=== PATIENT | male | born 1950 ===

== ENCOUNTER → 2020-12-30 11:17 | Outpatient (BNVA) | payer OTHER, SELFPAY | PROVIDERS: Visit Provider Nurse Practitioner Family | DX: G61.81 Chronic inflammatory demyelinating polyneuritis (principal); M47.816 Spondylosis without myelopathy or radiculopathy, lumbar region | CPT/HCPCS: 99202 ==

== ENCOUNTER → 2021-01-30 13:42 | Outpatient (BNVA) | payer OTHER, SELFPAY | PROVIDERS: Visit Provider Nurse Practitioner Family | DX: G61.81 Chronic inflammatory demyelinating polyneuritis (principal); M47.816 Spondylosis without myelopathy or radiculopathy, lumbar region; M54.16 Radiculopathy, lumbar region; R29.898 Other symptoms and signs involving the musculoskeletal system; Z98.890 Other specified postprocedural states | CPT/HCPCS: 99212 ==

== ENCOUNTER 2021-04-08 05:54 | Outpatient (REF) | payer OTHER, SELFPAY | END 2021-04-08 05:55 | disposition home or self-care (01) | LOC: HO.RADIR 05:54 | PROVIDERS: Visit Provider Internal Medicine | DX: Z13.89 Encounter for screening for other disorder (principal) ==

== ENCOUNTER → 2022-02-19 11:24 | Outpatient (BNVA) | payer OTHER, SELFPAY | PROVIDERS: Visit Provider Internal Medicine | DX: M54.16 Radiculopathy, lumbar region (principal); M47.816 Spondylosis without myelopathy or radiculopathy, lumbar region; G61.81 Chronic inflammatory demyelinating polyneuritis | CPT/HCPCS: 99212 ==

== ENCOUNTER 2022-03-17 04:56 | Outpatient (REF) | payer OTHER, SELFPAY ==
--- NOTE | ~2022-03-17 | FL_ITS ---
EXAMINATION: XR FLUOROSCOPY WITH IMAGES CLINICAL INFORMATION: Radiculopathy lumbar region COMPARISON: None. TECHNIQUE: Fluoroscopy Supervised By: Megan. Fluoroscopy Time: 0.8. Cumulative Dose: 39.8 mGy . DAP: 3.93 Gycm2. Images: 7. FINDINGS: There are 7 digital images obtained in the OR with needles positioned adjacent to bilateral L4 pedicles and contrast opacifying the epidural space. No gross bony abnormality seen. There is cement augmentation at the L2 vertebra from previous intervention. FL/FL guidance in treatment room IMPRESSION: Fluoroscopy guidance was provided to the referrer for pain management.
== END 2022-03-17 04:57 | disposition home or self-care (01) ==
LOC: CF 04:56
PROVIDERS: Visit Provider Internal Medicine
DX: M54.16 Radiculopathy, lumbar region (principal)
CPT/HCPCS: 64483; J1100

== ENCOUNTER 2022-03-23 14:38 | Emergency (ER) | payer OTHER, SELFPAY ==
--- NOTE | ~2022-03-23 | CT_ITS ---
EXAMINATION: CT HEAD WITHOUT CONTRAST CT CERVICAL SPINE WITHOUT CONTRAST CLINICAL INFORMATION: Fall. Head strike. COMPARISON: CT head 11/03/2011 TECHNIQUE: Imaging was performed from the skull base to vertex without intravenous administration of contrast. In addition, helical noncontrast CT imaging was acquired through the cervical spine and source images were reviewed along with axial reconstructions and sagittal and coronal MPRs. [This CT examination was performed using dose optimization techniques as appropriate, variously including the following: *Automated exposure control *Adjustment of mA and/or kV according to patient size (this includes techniques or standardized protocols for targeted exams where dose is matched to indication/reason for exam; i.e. extremities or head) *Use of iterative reconstruction technique] DLP: 1315 mGy-cm FINDINGS: HEAD: No intracranial mass, hemorrhage, or midline shift is visualized. There is generalized global volume loss. There is moderate prominence of the ventricles and the sulci . There is mild hypodensity of the periventricular white matter due to chronic small vessel ischemic disease. There are vascular calcifications of the internal carotid arteries bilaterally. . No extra-axial collections are identified. The paranasal sinuses and mastoid air cells are well aerated. CERVICAL SPINE: There is no evidence of acute cervical spine fracture. Vertebral bodies remain normal in height. Cervical vertebrae have normal alignment. Disc height narrowing and vertebral endplate spurs C5-C6 and C6-C7. Mild disc height narrowing at C4-C5. Multilevel degenerative change of facet joints most significant at the right C5-C6 facet joint. No pre- or paravertebral soft tissue abnormality is identified. Limited assessment of the lung apices is unremarkable. CT/CT cervical spine wo IV con IMPRESSION: 1. No acute intracranial pathology. 2. No CT evidence of acute cervical spine fracture or traumatic subluxation.
--- NOTE | 2022-03-23 14:50 | ED.GENADULT ---
HPI - General Adult General Chief complaint: Fall Stated complaint: FALL,HIT HEAD,-LOC,FROM [facility] PER EMS Time Seen by Provider: 03/23/22 14:50 Source: patient and EMS Mode of arrival: EMS Limitations: no limitations History of Present Illness HPI narrative: Franklin is a 71 year old male brought in by ambulance after a fall/head injury while shopping. He reports chronic extremity weakness as the cause and denies any dizziness/lightheadedness prior to event. He endorses persistent posterior and anterior head pain. He denies thinner use. Alert, oriented x 3, currently in cervical spine precautions. Onset (ago): minute(s) Location: head Severity: mild Severity scale (1-10): 1 Relieving factors: none Exacerbating factors: none Associated symptoms: denies other symptoms Treatments prior to arrival: none Related Data Home Medications Medication Instructions Recorded Confirmed calcium carbonate 600 mg calcium 600 mg PO DAILY 12/30/20 02/19/22 (1,500 mg) tablet (Calcium) ferrous sulfate 325 mg (65 mg 325 mg PO DAILY 12/30/20 02/19/22 iron) tablet,delayed release mecobalamin (vitamin B12) 5,000 2,500 mcg PO DAILY 12/30/20 02/19/22 mcg disintegrating tablet omeprazole 20 mg capsule,delayed 20 mg PO DAILY 12/30/20 02/19/22 release pregabalin 150 mg capsule 150 mg PO BID 12/30/20 02/19/22 simvastatin 40 mg tablet 60 mg PO BEDTIME 12/30/20 02/19/22 Previous Rx's Medication Instructions Recorded diazepam 5 mg tablet 5 mg PO BEDTIME PRN sleep #1 tab 02/19/22 tizanidine 2 mg tablet 2 mg PO BEDTIME PRN muscle 02/19/22 spasticity #60 tabs Allergies Allergy/AdvReac Type Severity Reaction Status Date / Time tramadol [TRAMADOL] Allergy Intermediate itching Verified 03/23/22 15:01 aspirin [ASPIRIN] AdvReac Intermediate UPSET Verified 03/23/22 15:01 STOMACH Review of Systems Constitutional: Constitutional: Reports no additional constitutional complaints, Denies chills, Denies fever(s), Reports headache(s) and Denies night sweats Eyes: Eyes: Reports no additional eye complaints, Denies blurry vision, Denies change in vision, Denies diplopia, Denies eye discharge, Denies loss of vision and Denies eye pain ENT: Denies dizziness and Reports headache(s) Cardiovascular: Cardiovascular: Reports no additional cardiovascular complaints, Denies chest pain, Denies lightheadedness, Denies Loss of Consciousness and Denies dyspnea Respiratory: Respiratory: Reports no additional respiratory complaints and Denies dyspnea Gastrointestinal: Gastrointestinal: Reports no additional gastrointestinal complaints, Denies abdominal pain, Denies melena, Denies hematochezia, Denies change in bowel habits and Denies change in stool character Genitourinary: Genitourinary: Reports no additional male genitourinary complaints, Denies hematuria, Denies oliguria, Denies difficulty urinating, Denies dysuria, Denies urinary frequency, Denies urinary hesitancy, Denies urinary incontinence and Denies urinary urgency Musculoskeletal: Musculoskeletal: Reports no additional musculoskeletal complaints, Denies numbness and Denies tingling Neurologic: Denies dizziness, Reports headache(s), Denies loss of vision, Denies numbness and Denies tingling Psychiatric: Psychiatric: Reports no additional psychiatric complaints Endocrine: Endocrine: Reports no additional endocrine complaints Hematologic/Lymphatic: Hematologic/Lymphatic: Reports no additional hematologic/lymphatic complaints Allergic/Immunologic: Allergic/Immunologic: Reports no additional allergic/immunologic complaints PMFSH Past Medical History Attestation statement: The following information was validated with the patient. Source: old records reviewed and nursing notes reviewed Surgical History History of kyphoplasty Social History Social History Alcohol intake: never Smoked in Last 30 Days: No Use of substances other than those prescribed or required for medical reasons: No Advance Directives: No Advance Directives Information Provided: No Physical Exam ED Vital Signs: Vital Signs - 24 hr 03/23/22 15:01 03/23/22 15:02 03/23/22 15:08 Pulse Rate 78 80 80 Respiratory Rate 18 16 16 Blood Pressure 140/89 H Pulse Oximetry 96 97 Oxygen Delivery Method Room Air BMI result Body Mass Index 36.9 Const General: cooperative, no acute distress, alert and awake Nutritional Appearance: well nourished Orientation/consciousness: patient oriented x3 Limitations: no limitations HENMT Head: Yes normal to inspection and Yes atraumatic Ears: hearing grossly normal bilaterally and external ears normal General nose exam: Normal external nose present, no nasal discharge noted and no epistaxis Face and sinus: Yes normal facial exam, No abrasion and No laceration Mouth: Normal oral and palatal mucosa present, no drooling and no muffled voice Eyes General: appearance normal, both eyes and all related structures Periorbital: periorbital findings normal Eyelids: Yes eyelids normal Conjunctivae: conjunctivae normal Pupils: Equal, round and reactive pupils present EOM: EOMs intact bilaterally Direct Ophthalmoscopy: normal light reflex Neck Neck: Yes normal visual inspection, No full ROM, Yes no lymphadenopathy and Yes trachea midline Chest Chest palpation & inspection: normal inspection of the chest Resp Effort & Inspection: normal respiratory effort and able to speak in complete sentences Auscultation: clear to auscultation bilaterally Cardio Rate: regular rate Rhythm: regular rhythm GI Inspection: Yes normal to inspection Palpation (GI): Soft to palpation, not firm, nontender and no guarding Auscultation: normal bowel sounds Neuro General: patient oriented x3 and moves all extremities Cranial nerves: Yes Equal, round and reactive pupils present Cognition (Neuro): normal cognition Motor exam (neuro): 5/5 motor strength present throughout Sensory Exam: Normal double simultaneous stimulation for sensation Coordination: [id number] test normal Pupils: Normal pupillary reactivity/response: bilateral Extrem General: Yes normal to inspection, Yes full ROM and Yes capillary refill normal Psych Appearance: grossly normal Mental Status: mental status grossly normal Affect: normal affect Attitude: cooperative Thought process: Normal thought process present Thought content: Normal thought content present Insight: Good insight present (Psych) Medical Decision Making Medical Decision Making MDM Narrative: Patient is a 71 year old assigned male at with a history of chronic bilateral lower leg weakness presenting to the emergency department today after a fall. Patient's physical exam was unremarkable. Patient's head and C-Spine CTs showed no acute process. I explained my physical exam findings as well as all test results to the patient. I answered all questions asked by the patient. I stressed the importance of the patient taking his medication as prescribed. I stressed the importance of the patient following up with his primary care provider. I stressed the importance of the patient returning to the emergency department immediately if his symptoms were to worsen or if he were to develop any dizziness, shortness of breath, difficulty breathing, chest pain, blurry vision, loss of vision, nausea, vomiting, abdominal pain, fever, chills, back pain, or any other complaints. Patient verbalized agreement and understanding with this treatment plan and discharge. Differential Diagnosis Differential Diagnoses: The differential diagnosis associated with the presentation includes fall, headache Radiology Impression Radiologist Impression: My interpretation is in agreement with the radiologist's impression of these imaging studies. EXAMINATION: CT HEAD WITHOUT CONTRAST CT CERVICAL SPINE WITHOUT CONTRAST CLINICAL INFORMATION: Fall. Head strike.? COMPARISON: CT head 11/03/2011 TECHNIQUE: Imaging was performed from the skull base to vertex without intravenous administration of contrast. In addition, helical noncontrast CT imaging was acquired through the cervical spine and source images were reviewed along with axial reconstructions and sagittal and coronal MPRs. [This CT examination was performed using dose optimization techniques as appropriate, variously including the following: *Automated exposure control *Adjustment of mA and/or kV according to patient size (this includes techniques or standardized protocols for targeted exams where dose is matched to indication/reason for exam; i.e. extremities or head) *Use of iterative reconstruction technique] DLP: 1315 mGy-cm FINDINGS: HEAD: No intracranial mass, hemorrhage, or midline shift is visualized. There is generalized global volume loss. There is moderate prominence of the ventricles and the sulci . There is mild hypodensity of the periventricular white matter due to chronic small vessel ischemic disease. There are vascular calcifications of the internal carotid arteries bilaterally. . No extra-axial collections are identified. The paranasal sinuses and mastoid air cells are well aerated. CERVICAL SPINE: There is no evidence of acute cervical spine fracture. Vertebral bodies remain normal in height. Cervical vertebrae have normal alignment. Disc height narrowing and vertebral endplate spurs C5-C6 and C6-C7. Mild disc height narrowing at C4-C5. Multilevel degenerative change of facet joints most significant at the right C5-C6 facet joint. No pre- or paravertebral soft tissue abnormality is identified. Limited assessment of the lung apices is unremarkable. CT/CT head/brain wo IV con IMPRESSION: 1.? No acute intracranial pathology. 2.? No CT evidence of acute cervical spine fracture or traumatic subluxation. ? Dictated By: Vikash Mello MD Signed By: Electronically signed by Vikash Mello MD 03/23/22 [id number] Independent Historian Clinical information obtained from an independent historian. History obtained from or confirmed by: EMS Discharge Plan Discharge Clinical Impression: Fall Patient Disposition: Home, Self-Care Instructions: Fall Prevention (ED) Additional Instructions: Follow up with your primary care provider. Return to the emergency department immediately if your symptoms worsen or if you develop any dizziness, shortness of breath, difficulty breathing, chest pain, blurry vision, loss of vision, nausea, vomiting, abdominal pain, fever, chills, back pain, or any other complaints. Roel un seguimiento con becerra proveedor de atenci?n primaria. Regrese al departamento de emergencias de inmediato si mary s?ntomas empeoran o si presenta mareos, falta de aire, dificultad para respirar, dolor de pecho, visi?n borrosa, p?rdida de la visi?n, n?useas, v?mitos, dolor abdominal, fiebre, escalofr?os, dolor de espalda o cualquier otras quejas. Prescriptions: No Action pregabalin 150 mg capsule 150 mg PO BID omeprazole 20 mg capsule,delayed release(DR/EC) 20 mg PO DAILY simvastatin 40 mg tablet 60 mg PO BEDTIME calcium carbonate [Calcium 600] 600 mg calcium (1,500 mg) tablet 600 mg PO DAILY ferrous sulfate 325 mg (65 mg iron) tablet,delayed release (DR/EC) 325 mg PO DAILY mecobalamin (vitamin B12) 5,000 mcg tablet,disintegrating 2,500 mcg PO DAILY tizanidine 2 mg tablet 2 mg PO BEDTIME PRN (Reason: muscle spasticity) Qty: 60 6RF Rx Instructions: Take 1-2 tabs at night time as needed diazepam 5 mg tablet 5 mg PO BEDTIME PRN (Reason: sleep) Qty: 1 0RF Rx Instructions: Take 1 hour before procedure Referrals: Marina Galeano MD [Primary Care Provider] - Print Language: Citizen Of [place]
[2022-03-23 15:01] VITALS: BP 140/89; PULSE 78; RESP 18; O2SAT 96
[2022-03-23 15:02] VITALS: BP 144/82; PULSE 80; RESP 16; O2SAT 96; O2SAT 97; BMI 36.9
[2022-03-23 15:08] VITALS: PULSE 80; RESP 16
== END 2022-03-23 17:51 | disposition home or self-care (01) ==
PROVIDERS: Emergency Provider Emergency Medicine; PCP Internal Medicine
DX: S09.90XA Unspecified injury of head, initial encounter (principal); R51.9 Headache, unspecified; M54.2 Cervicalgia; M79.605 Pain in left leg; M79.604 Pain in right leg; W01.0XXA Fall on same level from slipping, tripping and stumbling without subsequent striking against object, initial encounter; Y93.9 Activity, unspecified; Y92.512 Supermarket, store or market as the place of occurrence of the external cause; Y99.9 Unspecified external cause status; Z79.899 Other long term (current) drug therapy
CPT/HCPCS: 70450; 72125; 99284

== ENCOUNTER → 2022-04-16 09:44 | Outpatient (BNVA) | payer OTHER, SELFPAY | PROVIDERS: PCP Internal Medicine; Visit Provider Internal Medicine | DX: M47.816 Spondylosis without myelopathy or radiculopathy, lumbar region (principal) | CPT/HCPCS: 99212 ==

== ENCOUNTER 2022-07-05 19:58 | Emergency (ER) | payer OTHER, SELFPAY ==
--- NOTE | ~2022-07-05 | XR_ITS ---
EXAMINATION: XR HUMERUS, RIGHT CLINICAL INFORMATION: Fall. COMPARISON: None available. TECHNIQUE: AP and lateral views of the right humerus. FINDINGS: There is a nondisplaced right greater tuberosity fracture. No additional fracture seen. There is no dislocation. Partially visualized AC joint is unremarkable. XR/XR humerus RT IMPRESSION: Nondisplaced right greater tuberosity fracture. No additional fracture seen. There is no dislocation.
--- NOTE | ~2022-07-05 | CT_ITS ---
EXAMINATION: CT brain and CT cervical spine without contrast. CLINICAL INDICATIONS: Trauma. COMPARISON: CT brain and CT cervical spine 03/23/2022. TECHNIQUE: 5 mm thin axial and reformatted 2 mm thin sagittal and coronal images of brain were obtained. Subsequently axial 3 mm thin and reformatted 2 mm thin sagittal and coronal images of cervical spine were obtained. DLP 1319 mCi/CM. This CT examination was performed using dose optimization technique as appropriate, variously including the following: Automated exposure control Adjustment of MA and/or KV according to patient size(this includes techniques or standardized protocols for targeted exams where dose is matched to indication/reason for exam; extremities or head. Use of iterative reconstruction techniques. FINDINGS: There is no acute intra-axial, extra-axial bleed, masses or midline shift. There is no acute infarction evolution. There is no edema. The hopkins to white matter difference is maintained normal. The lateral ventricles are symmetrical in size and configuration but enlarged with mild prominence of cortical sulci. Bone windows reveal no calvarial abnormality. No scalp soft tissue abnormality seen.. Bilateral paranasal sinuses and mastoid air cells are well-aerated. Cervical spine: On sagittal reconstructed images there is mild straightening of cervical lordosis. The vertebral heights, alignment and disc heights are normal. No visible acute fracture, dislocation or subluxation seen. There is mild ventral spondylosis C4-C5, C5-C6 and C6-C7 disc levels. There is mild right C4-C5 neural foraminal narrowing. There is no visible acute fracture, dislocation or subluxation seen. There is moderate right C4-C5 facet joint arthropathy and hypertrophy. CT/CT cervical spine wo IV con IMPRESSION: No acute intracranial process seen. Mild straightening of cervical lordosis likely spasm. No visible acute fracture or dislocation seen in cervical spine.
[2022-07-05 20:09] VITALS: BP 170/82; PULSE 78; RESP 22; TEMP 36.4; O2SAT 99; BMI 40.3
--- NOTE | 2022-07-05 20:42 | ED.FALL ---
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 No chest pain or palpitation Related Data Home Medications Medication Instructions Recorded Confirmed calcium carbonate 600 mg calcium 600 mg PO DAILY 12/30/20 04/16/22 (1,500 mg) tablet (Calcium) ferrous sulfate 325 mg (65 mg 325 mg PO DAILY 12/30/20 04/16/22 iron) tablet,delayed release mecobalamin (vitamin B12) 5,000 2,500 mcg PO DAILY 12/30/20 04/16/22 mcg disintegrating tablet omeprazole 20 mg capsule,delayed 20 mg PO DAILY 12/30/20 04/16/22 release pregabalin 150 mg capsule 150 mg PO BID 12/30/20 04/16/22 simvastatin 40 mg tablet 60 mg PO BEDTIME 12/30/20 04/16/22 Previous Rx's Medication Instructions Recorded diazepam 5 mg tablet 5 mg PO BEDTIME PRN sleep #1 tab 02/19/22 tizanidine 2 mg tablet 2 mg PO BEDTIME PRN muscle 02/19/22 spasticity #60 tabs oxycodone-acetaminophen 5 mg-325 1 tab PO Q6H PRN pain #20 tabs 07/05/22 mg tablet (Percocet) Allergies Allergy/AdvReac Type Severity Reaction Status Date / Time tramadol [TRAMADOL] Allergy Intermediate itching Verified 04/16/22 09:52 aspirin [ASPIRIN] AdvReac Intermediate UPSET Verified 04/16/22 09:52 STOMACH Review of Systems Review of Systems: Yes all other systems are reviewed and are negative PMFSH Past Medical History Surgical History History of kyphoplasty Social History Social History Alcohol intake: never Smoked in Last 30 Days: No Use of substances other than those prescribed or required for medical reasons: No Any prior treatment program specific to substance use: No Advance Directives: No Advance Directives Information Provided: Yes Physical Exam Vital Signs: Vital Signs: Last Vital Signs Temp 98.6 F 07/05/22 21:50 Pulse 82 07/05/22 22:00 Resp 15 07/05/22 22:00 BP 132/70 07/05/22 22:00 Pulse Ox 97 07/05/22 22:00 O2 Del Method Room Air 07/05/22 22:00 BMI result Body Mass Index 40.3 Appearance: Alert. Oriented X3. No acute distress. Eyes: PERRLA, No Nystagmus HEENT: Pharynx normal. Oral Mucosa moist, abrasion right forehead Neck: Normal inspection. Neck supple. CVS: Normal heart rate and rhythm. Pulses normal. Respiratory: No respiratory distress. Equal air entry bilateral, no wheezing/rales/rhonchi Abdomen: Soft and nontender. Bowel sounds are present, no mass palpable, no CVA tenderness Skin: Skin warm and dry. Normal skin color. Normal skin turgor. Extremities: No lower extremity edema. No calf tenderness tenderness right upper end of humerus no deformity Neuro: Oriented X 3. Minimal residual movements of lower extremity, .No cerebellar signs , cranial nerves II-XII intact Medications Administered Discontinued Medications Generic Name Dose Route Start Last Admin Trade Name Freq PRN Reason Stop Dose Admin Oxycodone HCl 10 mg 07/05/22 21:06 07/05/22 21:33 Oxycodone Hcl Immed Release 5 Mg Tablet PO 07/05/22 21:07 10 mg ONCE ONE Administration Medical Decision Making Medical Decision Making [facility] Narrative: Patient status post mechanical fall head CT C-spine negative x-ray of the right humerus showed right greater tuberosity fracture. Patient was given a sling advised to follow with orthopedic Discharge Plan Discharge Clinical Impression: Closed fracture of lateral condyle of right humerus Patient Disposition: Home, Self-Care Instructions: Arm Fracture in Adults (ED) Additional Instructions: Wear the sling for support Follow-up with orthopedic Pain medication as prescribed Prescriptions: New oxycodone-acetaminophen [Percocet] 5-325 mg tablet 1 tab PO Q6H PRN (Reason: pain) Qty: 20 0RF Rx Instructions: Partial Fill upon patient request. No Action pregabalin 150 mg capsule 150 mg PO BID omeprazole 20 mg capsule,delayed release(DR/EC) 20 mg PO DAILY simvastatin 40 mg tablet 60 mg PO BEDTIME calcium carbonate [Calcium 600] 600 mg calcium (1,500 mg) tablet 600 mg PO DAILY ferrous sulfate 325 mg (65 mg iron) tablet,delayed release (DR/EC) 325 mg PO DAILY mecobalamin (vitamin B12) 5,000 mcg tablet,disintegrating 2,500 mcg PO DAILY tizanidine 2 mg tablet 2 mg PO BEDTIME PRN (Reason: muscle spasticity) Qty: 60 6RF Rx Instructions: Take 1-2 tabs at night time as needed diazepam 5 mg tablet 5 mg PO BEDTIME PRN (Reason: sleep) Qty: 1 0RF Rx Instructions: Take 1 hour before procedure Referrals: Eloy Nava MD [Physician] - 2 weeks
[2022-07-05] MEDS: oxyCODONE HCl Immed Release 5 MG TABLET 10 MG PO (21:33)
[2022-07-05 21:50] VITALS: BP 138/78; PULSE 89; RESP 18; TEMP 37
[2022-07-05 22:00] VITALS: BP 132/70; PULSE 82; RESP 15; O2SAT 97
--- NOTE | 2022-07-05 23:01 | MHC.EDTECH ---
osiris issued to pt.
[2022-07-05] MEDS: Morphine Sulfate 4 MG/ML CARTRIDGE IVPUSH (23:33)
[2022-07-05] MEDS: ondansetron HCL 4 MG/2 ML VIAL IVPUSH (23:33)
== END 2022-07-05 23:35 | disposition home or self-care (01) ==
PROVIDERS: Emergency Provider Internal Medicine
DX: S42.454A Nondisplaced fracture of lateral condyle of right humerus, initial encounter for closed fracture (principal); W17.89XA Other fall from one level to another, initial encounter; Y93.01 Activity, walking, marching and hiking; Y92.019 Unspecified place in single-family (private) house as the place of occurrence of the external cause; Y99.9 Unspecified external cause status
CPT/HCPCS: 70450; 72125; 73060; 96374; 96375; 99284; J2270; J2405

== ENCOUNTER 2022-07-21 12:27 | Outpatient (REF) | payer OTHER, SELFPAY ==
--- NOTE | ~2022-07-21 | XR_ITS ---
EXAMINATION: XR ELBOW, RIGHT CLINICAL INFORMATION: Pain in right elbow COMPARISON: None available. TECHNIQUE: AP, lateral, and oblique views of the right elbow. FINDINGS: The bones and soft tissues are normal. No fracture or joint effusion. Alignment is anatomic. There is mild narrowing of the joint space between the coracoid process and the distal humerus. XR/XR elbow RT min 3V IMPRESSION: Mild narrowing of the joint space between the coracoid process and the distal humerus.
--- NOTE | ~2022-07-21 | XR_ITS ---
EXAMINATION: XR SHOULDER, RIGHT CLINICAL INFORMATION: Pain in right shoulder COMPARISON: Right humerus 07/05/2022 from TECHNIQUE: AP view in internal/external rotation of the right shoulder. FINDINGS: There is partial healing of the nondisplaced right greater tuberosity fracture, most notable along the inferior aspect. There is superior subluxation of the humeral head with respect to the glenoid consistent with chronic rotator cuff tear. There is essentially obliteration of the subacromial space consistent with impingement. XR/XR shoulder RT min 2V IMPRESSION: 1. Partial healing of the nondisplaced right greater tuberosity fracture. 2. Chronic rotator cuff tear.
== END 2022-07-21 12:28 | disposition home or self-care (01) ==
LOC: HO.HOSX 12:27
PROVIDERS: Visit Provider Physician Assistant
DX: S42.251A Displaced fracture of greater tuberosity of right humerus, initial encounter for closed fracture (principal); M25.511 Pain in right shoulder
CPT/HCPCS: 73030; 73080; 99202

== ENCOUNTER 2022-09-01 11:27 | Outpatient (REF) | payer OTHER, SELFPAY ==
--- NOTE | ~2022-09-01 | XR_ITS ---
EXAMINATION: XR SHOULDER, RIGHT CLINICAL INFORMATION: Pain in right shoulder. COMPARISON: 07/21/2022. TECHNIQUE: AP external rotation, Grashey, scapular Y, and axillary views of the right shoulder. FINDINGS: Redemonstration of partial healing of the nondisplaced right greater tuberosity fracture. Redemonstration of superior subluxation of the humeral head with respect to the glenoid, again compatible with history of chronic rotator cuff tear. Narrowing of the subacromial space characteristic of impingement. XR/XR shoulder RT min 2V IMPRESSION: Redemonstration of partial healing of the nondisplaced right greater tuberosity fracture. Redemonstration of superior subluxation of the humeral head with respect to the glenoid again, compatible with history of chronic rotator cuff tear.
== END 2022-09-01 11:28 | disposition home or self-care (01) ==
LOC: HO.HOSX 11:27
PROVIDERS: Visit Provider Physician Assistant
DX: S42.251D Displaced fracture of greater tuberosity of right humerus, subsequent encounter for fracture with routine healing (principal); X58.XXXD Exposure to other specified factors, subsequent encounter
CPT/HCPCS: 73030; 99212

== ENCOUNTER 2022-09-01 13:01 | Outpatient (AMB) | payer OTHER, SELFPAY ==
--- NOTE | 2022-09-01 13:02 | A.OFFVIS_ITS ---
Intake Intake Visit Reasons: OV- Rt Humeral greater tuberosity FX Intake Note: Franklin is a 72 year old left hand dominant male who presents today for an evaluation of right humeral greater tuberosity fx, DOI 07/05/22. Patient reports his pain comes with movement of his arm. He continues to work with PT. Allergies tramadol [TRAMADOL] Allergy (Intermediate, Verified 09/01/22 13:12) itching aspirin [ASPIRIN] Adverse Reaction (Intermediate, Verified 09/01/22 13:12) UPSET STOMACH HPI OV- Rt Humeral greater tuberosity FX HPI Details 72-year-old male who returns to the office today for a follow-up of right humeral greater tuberosity fracture, 07/05/22. He continues to have pain in his arm with movement and is unable to perform daily activities with his right arm. He also c/o cracking in his arm with ROM. He is working with his physical therapy as instructed. [facility], [facility] Medical History (Updated 07/21/22 @ 15:28 by Jeffrey Bob PA-C) Asthma Surgical History (Updated 07/21/22 @ 14:55 by CARRIE Porter) History of hernia repair History of kyphoplasty Social History (Updated 07/21/22 @ 14:58 by CARRIE Porter) Alcohol intake: never Patient Tobacco Use Status: Never used Tobacco Current occupational status: disabled Current occupation: left hand dominant Review of Systems Const All systems reviewed & are unremarkable except as noted in HPI and below Physical Exam Const General: cooperative and no acute distress Orientation/consciousness: patient oriented x3 Resp Effort & Inspection: normal respiratory effort and able to speak in complete sentences Cardio Peripheral pulses: Peripheral pulses 2+ throughout Neuro General: patient oriented x3 Extrem Other: Right shoulder: Normal to inspection. He does have tenderness over the greater tuberosity. He can FF to 95 deg. NVI throughout. Results Reviewed Results Reviewed: X-rays of the right shoulder obtained in the office today show a non-displaced greater tuberosity fracture. Assessment & Plan Assessment & Plan (1) Greater tuberosity of humerus fracture: Code(s): S42.253A - Displaced fracture of greater tuberosity of unspecified humerus, initial encounter for closed fracture Plan He will progress with physical therapy to begin gentle RTC strengthening. He will also continue working with ROM and periscapular strengthening. I would like to see him back in 6 weeks with new x-rays, sooner if needed. Orders: Orders XR shoulder RT min 2V Today M25.511 - Pain in right shoulder Patient Instructions: Scribed for Jeffrey Bob PA-C, by Paddy Suarez biomedical equipment support specialist, on 09/01/2022 at 1:00 PM EST. I, Jeffrey Bob PA-C, have personally reviewed and agree with the information entered by the scribe. Coding Level of Care Code Global (19987) Diagnoses Greater tuberosity of humerus fracture S42.253A
== END 2022-09-01 13:42 | disposition home or self-care (01) ==
PROVIDERS: Visit Provider Physician Assistant
DX: S42.253A Displaced fracture of greater tuberosity of unspecified humerus, initial encounter for closed fracture (principal)
CPT/HCPCS: 99213

== ENCOUNTER 2022-10-13 09:03 | Outpatient (REF) | payer OTHER, SELFPAY ==
--- NOTE | ~2022-10-13 | XR_ITS ---
EXAMINATION: XR SHOULDER, RIGHT CLINICAL INFORMATION: Pain COMPARISON: Right shoulder radiograph from 08/30/2022 TECHNIQUE: Two views of the right shoulder. FINDINGS: Previously identified nondisplaced right greater tuberosity fracture is less conspicuous on current examination. Degenerative changes of the glenohumeral and acromioclavicular joint. Narrowing of the acromioclavicular interval suggesting rotator cuff pathology. Joint spaces and alignment are otherwise maintained. Soft tissues are unremarkable. Utilized portions of the right chest are unremarkable. XR/XR shoulder RT min 2V IMPRESSION: 1. Previously identified nondisplaced right greater tuberosity fracture is less conspicuous on current examination. 2. Degenerative changes of the glenohumeral and acromioclavicular joint. 3. Narrowing of the acromioclavicular interval suggesting rotator cuff pathology.
== END 2022-10-13 09:04 | disposition home or self-care (01) ==
LOC: HO.HOSX 09:03
PROVIDERS: Visit Provider Physician Assistant
DX: S42.251D Displaced fracture of greater tuberosity of right humerus, subsequent encounter for fracture with routine healing (principal)
CPT/HCPCS: 73030

== ENCOUNTER 2022-10-13 13:13 | Outpatient (AMB) | payer OTHER, SELFPAY ==
--- NOTE | 2022-10-13 13:26 | MHC.OFFVIS ---
Intake Vital Signs 10/13/22 13:27 Height 5 ft 6 in Weight 250 lb BMI 40.3 Intake Visit Reasons: ov- Right greater tuberosity fx w xrays Intake Note: Franklin is a 72 year old left hand dominant male who presents today for an evaluation of right humeral greater tuberosity fx, DOI 07/05/22.?Xrays updated in office. Patient reports he is doing well, his pain will come and go. He has completed PT. Allergies tramadol [TRAMADOL] Allergy (Intermediate, Verified 10/13/22 13:27) itching aspirin [ASPIRIN] Adverse Reaction (Intermediate, Verified 10/13/22 13:27) UPSET STOMACH HPI ov- Right greater tuberosity fx w xrays HPI Details 72-year-old left hand dominant male who returns to the office today for a follow-up of right humeral greater tuberosity fracture, 07/05/22. He continues to have intermittent pain in his shoulder but is doing well overall. He is completed with his physical therapy sessions. [facility] Medical History (Updated 07/21/22 @ 15:28 by Jeffrey Bob PA-C) Asthma Surgical History History of hernia repair History of kyphoplasty Social History Alcohol intake: never Patient Tobacco Use Status: Never used Tobacco Current occupational status: disabled Current occupation: left hand dominant Review of Systems Const All systems reviewed & are unremarkable except as noted in HPI and below Physical Exam Vital Signs: BMI result Body Mass Index 40.3 Const General: cooperative and no acute distress Orientation/consciousness: patient oriented x3 Resp Effort & Inspection: normal respiratory effort and able to speak in complete sentences Cardio Peripheral pulses: Peripheral pulses 2+ throughout Neuro General: patient oriented x3 Extrem Other: Right shoulder: Normal to inspection. He does not have pain or tenderness over the greater tuberosity. He has full ROM in his shoulder. 5/5 RTC strength. He can FF to 95 deg. NVI throughout. Results Reviewed Results Reviewed: X-rays of the right shoulder obtained in the office today show a non-displaced greater tuberosity fracture. Assessment & Plan Assessment & Plan (1) Greater tuberosity of humerus fracture: Code(s): S42.253A - Displaced fracture of greater tuberosity of unspecified humerus, initial encounter for closed fracture Plan He will continue with activity as tolerated including working on his home exercises program. If symptoms persist or worsens, patient will contact the office, otherwise follow-up as needed. Orders: Orders XR shoulder RT min 2V Today M25.511 - Pain in right shoulder Patient Instructions: Scribed for Jeffrey Bob PA-C, by Paddy Suarez medical records auditor, on 10/13/2022 at 1:30 PM EST. I, Jeffrey Bob PA-C, have personally reviewed and agree with the information entered by the scribe. Coding Level of Care Code Global (47941) Diagnoses Greater tuberosity of humerus fracture S42.253A
[2022-10-13 13:27] VITALS: BMI 40.3
== END 2022-10-13 14:24 | disposition home or self-care (01) ==
PROVIDERS: Visit Provider Physician Assistant
DX: S42.253A Displaced fracture of greater tuberosity of unspecified humerus, initial encounter for closed fracture (principal)
CPT/HCPCS: 99213

== ENCOUNTER 2022-12-21 01:55 | Emergency (ER) | payer OTHER, SELFPAY ==
--- NOTE | ~2022-12-21 | CT_ITS ---
CT HEAD WITHOUT IV CONTRAST CT CERVICAL SPINE WITHOUT IV CONTRAST CT MAXILLOFACIAL WITHOUT IV CONTRAST INDICATION: Head injury. Rule out fracture. COMPARISON: Head and cervical spine CT 07/05/2022. TECHNIQUE: Multidetector CT acquisitions of the head, maxillofacial region, and cervical spine were obtained without IV contrast. Multiplanar reformats were acquired and utilized for image interpretation. This CT examination was performed using dose optimization techniques as appropriate, variously including the following: *Automated exposure control *Adjustment of mA and/or kV according to patient size (this includes techniques or standardized protocols for targeted exams where dose is matched to indication/reason for exam; i.e. extremities or head) *Use of iterative reconstruction technique FINDINGS: HEAD: There is no intracranial hemorrhage, hydrocephalus, extra-axial surface collection, midline shift, or other herniation pattern. Juarez to white matter differentiation is diffusely maintained without evidence of an evolved acute territorial infarct. The basilar cisterns are preserved. Anterior left frontal scalp swelling. No acute osseous abnormality. There is a retention cyst within the left maxillary sinus and there is mild mucosal thickening within the maxillary sinuses and ethmoid air cells bilaterally. MAXILLOFACIAL: The mandible, maxilla, pterygoid plates, nasal bones, zygomatic arches, paranasal sinus bustamante, and bony orbits are intact. No acute osseous abnormality within the maxillofacial region. The paranasal sinuses and mastoid air cells remain well aerated. No significant soft tissue findings. CERVICAL SPINE: Straightening of the cervical lordosis. The vertebral body heights are maintained. There is disc volume loss at C6-C7 greater than C5-C6. Mild degenerative anterior subluxation of C7 on T1. There are no acute fractures and there are no acute subluxations. Multilevel hypertrophic facet arthropathy. Multilevel endplate osteophytes. Retropharyngeal course of the carotid arteries bilaterally. CT/CT cervical spine wo IV con IMPRESSION: - No acute intracranial abnormality. - No acute osseous abnormality within the cervical spine. Multilevel cervical spondylosis. - No acute osseous abnormality within the maxillofacial region. Anterior left frontal scalp swelling.
[2022-12-21 02:01] VITALS: BP 135/94; BP 140/88; PULSE 74; PULSE 83; RESP 16; TEMP 36.6; O2SAT 97; O2SAT 98; BMI 35.1
[2022-12-21 02:04] VITALS: BP 135/94; PULSE 74; RESP 17; TEMP 36.6; O2SAT 96
--- NOTE | 2022-12-21 02:40 | PC.NURSE ---
Dr. Velasquez made aware of pt chief complaint; CT scan ordered.
--- NOTE | 2022-12-21 02:47 | ED.FALL ---
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 Patient states that he sometimes cannot control his body, he believes that he rolled over and fell out of bed. Patient landed on his face pain. He states that he was lying on the floor for about 1 hour after which time he was able to call for help. Police with the 1st responders and that paramedics arrived and the patient was transported to the emergency department for evaluation. Patient states he is not sure if he lost consciousness. He is complaining of pain in his forehead nose and face. He denies headache, nausea, vomiting. He denies neck pain. Related Data Home Medications Medication Instructions Recorded Confirmed calcium carbonate 600 mg calcium 600 mg PO DAILY 12/30/20 04/16/22 (1,500 mg) tablet (Calcium) ferrous sulfate 325 mg (65 mg 325 mg PO DAILY 12/30/20 04/16/22 iron) tablet,delayed release mecobalamin (vitamin B12) 5,000 2,500 mcg PO DAILY 12/30/20 04/16/22 mcg disintegrating tablet omeprazole 20 mg capsule,delayed 20 mg PO DAILY 12/30/20 04/16/22 release pregabalin 150 mg capsule 150 mg PO BID 12/30/20 04/16/22 simvastatin 40 mg tablet 60 mg PO BEDTIME 12/30/20 04/16/22 albuterol sulfate 2.5 mg/3 mL mg inhalation 07/21/22 (0.083 %) solution for nebulization albuterol sulfate 90 mcg/actuation 0 mcg inhalation 07/21/22 aerosol inhaler (Ventolin HFA) fluticasone propionate 110 1 puff inhalation BID 07/21/22 mcg/actuation HFA aerosol inhaler (Flovent HFA) Previous Rx's Medication Instructions Recorded diazepam 5 mg tablet 5 mg PO BEDTIME PRN sleep #1 tab 02/19/22 tizanidine 2 mg tablet 2 mg PO BEDTIME PRN muscle 02/19/22 spasticity #60 tabs Allergies Allergy/AdvReac Type Severity Reaction Status Date / Time tramadol [TRAMADOL] Allergy Intermediate itching Verified 12/21/22 02:06 aspirin [ASPIRIN] AdvReac Intermediate UPSET Verified 12/21/22 02:06 STOMACH Review of Systems Review of Systems: Yes all other systems are reviewed and are negative [facility] Past Medical History Medical History Asthma Surgical History History of hernia repair History of kyphoplasty Social History Social History Alcohol intake: never Patient Tobacco Use Status: Never used Tobacco Smoked in Last 30 Days: No Use of substances other than those prescribed or required for medical reasons: No Advance Directives: No Advance Directives Information Provided: Yes Current occupational status: disabled Current occupation: left hand dominant Physical Exam Vital Signs: Vital Signs: Last Vital Signs Temp 97.8 F 12/21/22 05:42 Pulse 62 12/21/22 05:42 Resp 17 12/21/22 05:42 BP 136/84 12/21/22 05:42 Pulse Ox 97 12/21/22 05:42 O2 Del Method Room Air 12/21/22 05:42 BMI result Body Mass Index 35.1 Vital signs revealed for unremarkable. Exam: General: Awake, alert in no distress Head: Normocephalic, patient has abrasions on his forehead and no with no significant hematoma, these areas are tender to palpation EENT: PERRL, Lids normal, sclera normal, conjunctiva normal, nose normal , ears normal, throat without erythema or exudates Neck: Supple, no adenopathy, no trachea midline or C-spine tenderness Lung: breath sounds symmetric, no wheezing, rales or rhonchi Chest: symmetric movement, nontender Heart: regular rate and rhythm, normal S1, S2 no murmurs or rubs Abdomen: soft, non-tender, nondistended, normal bowel sounds Back: no vertebral tenderness, no CVAT Extremities: Atrophy of his upper and lower extremities secondary to his chronic, patient is able to move his upper extremities but is not able to toe raises lower extremities against gravity-this is chronic Skin: no rashes, no lesion, normal color and warmth Neuro: Awake, alert, oriented, normal speech, cranial nerves intact, weakness in both upper and lower extremity secondary to chronic inflammatory demyelination neuropathy Psych: Pleasant, cooperative Medications Administered Discontinued Medications Generic Name Dose Route Start Last Admin Trade Name Kirti PRN Reason Stop Dose Admin Acetaminophen 975 mg 12/21/22 03:45 12/21/22 04:05 Acetaminophen 325 Mg Tablet PO 12/21/22 03:46 975 mg ONCE ONE Administration Acetaminophen 975 mg 12/21/22 03:52 12/21/22 04:05 Acetaminophen 325 Mg Tablet PO 12/21/22 03:53 Not Given ONCE STA Bacitracin 1 appl 12/21/22 03:45 12/21/22 04:05 Bacitracin Oint 0.9 Gm Packet TOPICAL 12/21/22 03:46 1 appl ONCE ONE Administration Protocol Medical Decision Making Medical Decision Making MDM Narrative: 72-year-old male with a history of upper and lower extremity weakness since 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 Patient's physical exam did reveal abrasions to his face and nose with tenderness palpation of the areas. Patient had no significant cervical spine tenderness, patient has chronic weakness of his upper and lower extremities which is consistent with his baseline . CT scan of the patient's head and cervical spine were ordered. Patient was ordered to get Tylenol 975 mg orally for pain. 06:[address] scan of his head, face and cervical spine revealed no acute fractures Patient states this pain is improved after receiving Tylenol. I ordered bacitracin applied to his facial abrasions. Patient will be discharged home, advised to take Tylenol for pain and apply bacitracin twice a day for 1 week. He was given printed and verbal instructions prior to discharge. Differential Diagnosis Differential Diagnoses: The differential diagnosis associated with the presentation includes Differential diagnosis includes was not limited to skull fracture, cerebral bleed Lab Data Labs: Lab Results 12/21/22 Range/Units 06:14 POC Glucose 93 (60-115) mg/dL Radiology Impression Discussion of test interpretation with radiology: I have reviewed the radiologist's reading. Radiologist Impression: CT head/brain wo IV con IMPRESSION: - No acute intracranial abnormality. - No acute osseous abnormality within the cervical spine. Multilevel cervical spondylosis. - No acute osseous abnormality within the maxillofacial region. Anterior left frontal scalp swelling. Dictated By: Justin Shi MD Discharge Plan Discharge Clinical Impression: Accidental fall from bed Qualifiers: Encounter type: initial encounter Qualified Code(s): W06.XXXA - Fall from bed, initial encounter Closed head injury Qualifiers: Encounter type: initial encounter Qualified Code(s): S09.90XA - Unspecified injury of head, initial encounter Abrasion of face Qualifiers: Encounter type: initial encounter Qualified Code(s): S00.81XA - Abrasion of other part of head, initial encounter Patient Disposition: Home, Self-Care Instructions: Head Injury (ED) Additional Instructions: The CT scans of your head, face and neck revealed no broken bones which is very reassuring You do have abrasions/scrapes to your forehead and nose. Apply bacitracin twice a day for 1 week. Watch for signs of infection which would include increased redness, red streaks going away from the wounds, drainage of pus, swelling, increased pain. Follow-up with your doctor in 2 days. Please return to the emergency department if your symptoms get worse or if you develop any symptoms that are concerning to you. Prescriptions: No Action pregabalin 150 mg capsule 150 mg PO BID omeprazole 20 mg capsule,delayed release(DR/EC) 20 mg PO DAILY simvastatin 40 mg tablet 60 mg PO BEDTIME calcium carbonate [Calcium 600] 600 mg calcium (1,500 mg) tablet 600 mg PO DAILY ferrous sulfate 325 mg (65 mg iron) tablet,delayed release (DR/EC) 325 mg PO DAILY mecobalamin (vitamin B12) 5,000 mcg tablet,disintegrating 2,500 mcg PO DAILY tizanidine 2 mg tablet 2 mg PO BEDTIME PRN (Reason: muscle spasticity) Qty: 60 6RF Rx Instructions: Take 1-2 tabs at night time as needed diazepam 5 mg tablet 5 mg PO BEDTIME PRN (Reason: sleep) Qty: 1 0RF Rx Instructions: Take 1 hour before procedure fluticasone propionate [Flovent HFA] 110 mcg/actuation HFA aerosol inhaler 1 puff inhalation BID albuterol sulfate 2.5 mg /3 mL (0.083 %) solution for nebulization inhalation albuterol sulfate [Ventolin HFA] 90 mcg/actuation HFA aerosol inhaler 0 mcg inhalation
--- NOTE | 2022-12-21 03:13 | PC.NURSE ---
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 pt states he is at baseline strength. axox4. awaiting ct scan results to remove c-collar.
[2022-12-21] MEDS: Acetaminophen 325 MG TABLET 975 MG PO (04:05)
[2022-12-21] MEDS: Bacitracin Oint 0.9 GM PACKET 1 APPL TOPICAL (04:05)
--- NOTE | 2022-12-21 04:10 | PC.NURSE ---
Addendum entered by Lili Uriostegui 12/21/22 04:10: c-collar removed by Dr. Velasquez. Original Note: pt medicated per apr. bacitracin applied to forehead/nose abrasions.
[2022-12-21 05:42] VITALS: BP 136/84; PULSE 62; RESP 17; TEMP 36.6; O2SAT 97
[2022-12-21 06:18] LABS: Glucose, Whole Blood 93 mg/dL (60-115)
--- NOTE | 2022-12-21 06:21 | PC.NURSE ---
no changes to previous assessment by this RN. pt sleeping in stretcher. resp even and unlabored. call march within reach.
--- NOTE | 2022-12-21 07:48 | PC.NURSE ---
patients ninirmal liz picking patient up for d/c
[2022-12-21 08:35] VITALS: BP 125/78; PULSE 67; RESP 16; TEMP 36.8; O2SAT 97
== END 2022-12-21 08:37 | disposition home or self-care (01) ==
PROVIDERS: Emergency Provider Emergency Medicine Emergency Medical Services
DX: S09.90XA Unspecified injury of head, initial encounter (principal); S00.81XA Abrasion of other part of head, initial encounter; S00.31XA Abrasion of nose, initial encounter; W06.XXXA Fall from bed, initial encounter; Y93.89 Activity, other specified; Y92.013 Bedroom of single-family (private) house as the place of occurrence of the external cause; Y99.9 Unspecified external cause status
CPT/HCPCS: 70450; 70486; 72125; 82947; 99284

== ENCOUNTER 2023-04-25 12:58 | Outpatient (AMB) | payer OTHER, SELFPAY ==
--- NOTE | 2023-04-25 13:01 | A.OFFVIS_ITS ---
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 Labor Mediator Required: No Allergies tramadol [TRAMADOL] Allergy (Intermediate, Verified 05/20/23 10:56) itching aspirin [ASPIRIN] Adverse Reaction (Intermediate, Verified 05/20/23 10:56) UPSET STOMACH Medication List - Last Reconciled 04/25/23 by Aura Desouza MD albuterol sulfate 90 mcg/actuation (Ventolin HFA) 0 mcg inhalation albuterol sulfate mg inhalation calcium carbonate (Calcium) 600 mg PO DAILY diazepam 5 mg PO BEDTIME PRN ferrous sulfate 325 mg PO DAILY fluticasone propionate 110 mcg/actuation (Flovent HFA) 1 puff inhalation BID mecobalamin (vitamin B12) 2,500 mcg PO DAILY omeprazole 20 mg PO DAILY pregabalin 150 mg PO BID simvastatin 60 mg PO BEDTIME tizanidine 2 mg PO BEDTIME PRN HPI HPI Comments History of Present Illness Details 72y/o male comes for evaluation numbness , tingling and cramping in his eliana feet and lower legs.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 He was [facility] and was at [facility].His motor functions improved and started walking with cane But he has wrsened progressively ans now can ambulate only with a wlaker.. About 1 year ago he had a fall, fractured his right arm and was not exercising. Since then he has noticed increase in weakness, tingling ,cramping.It is usually when he is standing. He denies neck pain but has back pain . He denies urinary incontinence or bowel movements. [facility], [facility] Medical History (Updated 05/31/23 @ 08:23 by Aura Desouza MD) Neuropathy Quadriparesis Guillain-Dairy syndrome Pulmonary embolism Depression Anxiety Osteopenia Lumbar compression fracture BETY on CPAP Anxiety Prediabetes Hyperlipidemia Lumbar spinal stenosis Asthma Surgical History History of hernia repair History of kyphoplasty Social History Alcohol intake: never Patient Tobacco Use Status: Never used Tobacco Current occupational status: disabled Current occupation: left hand dominant Physical Exam Vital Signs: Last Vital Signs Pulse 74 04/25/23 13:03 Resp 16 04/25/23 13:03 BP 120/60 04/25/23 13:03 Pulse Ox 95 04/25/23 13:03 Oxygen Delivery Method Room Air 04/25/23 13:03 BMI result Body Mass Index 36.0 Const General: cooperative, healthy appearing, comfortable and no acute distress Nutritional Appearance: average body habitus Orientation/consciousness: patient oriented x3 Neuro Other: 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 Forearm 4/5 SHoulder - 4/5 Tone normal Thenar and hypothenar atrophy LE Proximal 2/5 distal 1/5 General: patient oriented x3 Deep tendon reflexes (DTR's): Right triceps reflex intensity grade: 2+, Left triceps reflex intensity grade: 2+, Rt Biceps (C5, C6): 2+, Left biceps reflex intensity grade: 2+, Right brachioradialis reflex intensity grade: 2+, Left brachioradialis reflex intensity grade: 2+, Right patellar reflex intensity grade: 1+, Left patellar reflex intensity grade: 1+, Right ankle reflex intensity grade: 0 and Left ankle reflex intensity grade: 0 Coordination: [id number] test normal Results Reviewed Results Reviewed: [address] [address] CERVICAL SPINE: Straightening of the cervical lordosis. The vertebral body heights are maintained. There is disc volume loss at C6-C7 greater than C5-C6. Mild degenerative anterior subluxation of C7 on T1. There are no acute fractures and there are no acute subluxations. Multilevel hypertrophic facet arthropathy. Multilevel endplate osteophytes. Retropharyngeal course of the carotid arteries bilaterally. CT/CT cervical spine wo IV con IMPRESSION: - No acute intracranial abnormality. - No acute osseous abnormality within the cervical spine. Multilevel cervical spondylosis. - No acute osseous abnormality within the maxillofacial region. 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 Coding Level of Care Code New Pt Level 4 (10823) Diagnoses Quadriparesis G82.50 Neuropathy G62.9
[2023-04-25 13:03] VITALS: BP 120/60; PULSE 74; RESP 16; O2SAT 95; BMI 36.0
== END 2023-04-25 13:55 | disposition home or self-care (01) ==
PROVIDERS: Visit Provider Psychiatry & Neurology Neurology
DX: G82.50 Quadriplegia, unspecified (principal); G62.9 Polyneuropathy, unspecified
CPT/HCPCS: 99204

== ENCOUNTER → 2023-04-25 12:58 | Outpatient (BNVA) | payer OTHER, SELFPAY | PROVIDERS: Visit Provider Psychiatry & Neurology Neurology | DX: G82.50 Quadriplegia, unspecified (principal); G62.9 Polyneuropathy, unspecified | CPT/HCPCS: 99202 ==

== ENCOUNTER 2023-05-11 19:18 | Emergency (ER) | payer OTHER, SELFPAY ==
--- NOTE | ~2023-05-11 | CT_ITS ---
EXAMINATION: CT HEAD WITHOUT CONTRAST CT CERVICAL SPINE WITHOUT CONTRAST CLINICAL INFORMATION: Headache. Fall. Pain. COMPARISON: CT cervical spine 12/21/2022. TECHNIQUE: Php Developer images were obtained. CT imaging of the head and cervical spine was performed without contrast. Data was reformatted into multiplanar images at the acquisition workstation. This CT examination was performed using dose optimization techniques as appropriate, including one or more of the following: Automated exposure control, iterative reconstruction, and adjustment of technique factors (mA and/or kVp) according to patient size (this includes techniques or standardized protocols for targeted exams where dose is matched to indication/reason for exam). Fleischner Society criteria for the followup of incidental pulmonary nodules was implemented if appropriate. DLP: 1326 mGy-cm. FINDINGS: Head: There is no acute intracranial hemorrhage or abnormal extra-axial collection. No intracranial mass effect or midline shift. Lateral and third ventricles are proportionate to the subarachnoid spaces. No hydrocephalus. There are scattered nonspecific foci of hypoattenuation within the periventricular white matter. Juarez-white matter differentiation is otherwise preserved and there is no evidence of acute territorial infarct. The calvarium and skull base are intact. Mastoid air cells and middle ear cavities are well aerated. No active paranasal sinus disease. Globes and orbits are grossly symmetric. Cervical spine: There is slight anterolisthesis of C7 on T1 that appears to be related to facet degenerative changes at this level. Alignment is otherwise normal. Vertebral body heights are preserved. No acute fracture. No abnormal prevertebral soft tissue swelling. There is a retropharyngeal course of the carotid arteries. Canal patency is not well assessed on this examination due to inherent limitations of CT without intrathecal contrast. Grossly no spinal canal compromise. Visualized soft tissues of the neck are unremarkable. Lung apices are clear. CT/CT cervical spine wo IV con IMPRESSION: Head: No acute intracranial hemorrhage. There are scattered chronic small vessel ischemic changes within the periventricular white matter. Grossly no evidence of acute territorial infarct. Cervical Spine: There is slight anterolisthesis of C7 on T1 that appears to be related to facet degenerative changes at this level. No acute fracture and no posttraumatic spinal subluxation. Grossly no spinal canal compromise.
--- NOTE | ~2023-05-11 | XR_ITS ---
EXAMINATION: Left lower leg, ankle and foot x-rays CLINICAL INFORMATION: Fall. Pain. COMPARISON: None. TECHNIQUE: 2 views of the left lower leg, 3 views of the left ankle and 3 views of the left foot FINDINGS: Left lower leg ankle: There is a plate and screws hardware appears intact. No fracture malleolus. There is a transverse fracture line seen in the medial malleolus adjacent to the screw. This may extend to the medial tibial plafond. Fracture appears acute. There is diffuse soft tissue swelling at the ankle. Clinical correlation recommended. No lower leg fracture normal knee joint. Left foot: No fracture or dislocation. Normal joint spaces. Normal soft tissues. XR/XR tibia fibula LT 2V IMPRESSION: Surgical hardware is seen in the medial malleolus and distal fibula. Transverse acute appearing medial malleolar fracture.
--- NOTE | ~2023-05-11 | CT_ITS ---
EXAMINATION: CT HEAD WITHOUT CONTRAST CT CERVICAL SPINE WITHOUT CONTRAST CLINICAL INFORMATION: Headache. Fall. Pain. COMPARISON: CT cervical spine 12/21/2022. TECHNIQUE: Air Brake Rigger images were obtained. CT imaging of the head and cervical spine was performed without contrast. Data was reformatted into multiplanar images at the acquisition workstation. This CT examination was performed using dose optimization techniques as appropriate, including one or more of the following: Automated exposure control, iterative reconstruction, and adjustment of technique factors (mA and/or kVp) according to patient size (this includes techniques or standardized protocols for targeted exams where dose is matched to indication/reason for exam). Fleischner Society criteria for the followup of incidental pulmonary nodules was implemented if appropriate. DLP: 1326 mGy-cm. FINDINGS: Head: There is no acute intracranial hemorrhage or abnormal extra-axial collection. No intracranial mass effect or midline shift. Lateral and third ventricles are proportionate to the subarachnoid spaces. No hydrocephalus. There are scattered nonspecific foci of hypoattenuation within the periventricular white matter. Juarez-white matter differentiation is otherwise preserved and there is no evidence of acute territorial infarct. The calvarium and skull base are intact. Mastoid air cells and middle ear cavities are well aerated. No active paranasal sinus disease. Globes and orbits are grossly symmetric. Cervical spine: There is slight anterolisthesis of C7 on T1 that appears to be related to facet degenerative changes at this level. Alignment is otherwise normal. Vertebral body heights are preserved. No acute fracture. No abnormal prevertebral soft tissue swelling. There is a retropharyngeal course of the carotid arteries. Canal patency is not well assessed on this examination due to inherent limitations of CT without intrathecal contrast. Grossly no spinal canal compromise. Visualized soft tissues of the neck are unremarkable. Lung apices are clear. CT/CT head/brain wo IV con IMPRESSION: Head: No acute intracranial hemorrhage. There are scattered chronic small vessel ischemic changes within the periventricular white matter. Grossly no evidence of acute territorial infarct. Cervical Spine: There is slight anterolisthesis of C7 on T1 that appears to be related to facet degenerative changes at this level. No acute fracture and no posttraumatic spinal subluxation. Grossly no spinal canal compromise.
--- NOTE | ~2023-05-11 | XR_ITS ---
EXAMINATION: Left lower leg, ankle and foot x-rays CLINICAL INFORMATION: Fall. Pain. COMPARISON: None. TECHNIQUE: 2 views of the left lower leg, 3 views of the left ankle and 3 views of the left foot FINDINGS: Left lower leg ankle: There is a plate and screws hardware appears intact. No fracture malleolus. There is a transverse fracture line seen in the medial malleolus adjacent to the screw. This may extend to the medial tibial plafond. Fracture appears acute. There is diffuse soft tissue swelling at the ankle. Clinical correlation recommended. No lower leg fracture normal knee joint. Left foot: No fracture or dislocation. Normal joint spaces. Normal soft tissues. XR/XR foot LT 2V IMPRESSION: Surgical hardware is seen in the medial malleolus and distal fibula. Transverse acute appearing medial malleolar fracture.
--- NOTE | ~2023-05-11 | XR_ITS ---
EXAMINATION: Left lower leg, ankle and foot x-rays CLINICAL INFORMATION: Fall. Pain. COMPARISON: None. TECHNIQUE: 2 views of the left lower leg, 3 views of the left ankle and 3 views of the left foot FINDINGS: Left lower leg ankle: There is a plate and screws hardware appears intact. No fracture malleolus. There is a transverse fracture line seen in the medial malleolus adjacent to the screw. This may extend to the medial tibial plafond. Fracture appears acute. There is diffuse soft tissue swelling at the ankle. Clinical correlation recommended. No lower leg fracture normal knee joint. Left foot: No fracture or dislocation. Normal joint spaces. Normal soft tissues. XR/XR ankle LT min 3V IMPRESSION: Surgical hardware is seen in the medial malleolus and distal fibula. Transverse acute appearing medial malleolar fracture.
[2023-05-11 20:10] VITALS: BP 132/100; BP 152/87; PULSE 78; PULSE 84; RESP 17; TEMP 36.8; O2SAT 100; O2SAT 98; BMI 35.6
[2023-05-11 20:22] VITALS: BP 152/87; PULSE 78; RESP 16; TEMP 36.8; O2SAT 97
--- NOTE | 2023-05-11 20:25 | ECG_ITS ---
Test Reason : FALL Blood Pressure : / mmHG Vent. Rate : 081 BPM Atrial Rate : 081 BPM P-R Int : 146 ms QRS Dur : 080 ms QT Int : 382 ms P-R-T Axes : 051 053 042 degrees QTc Int : 443 ms Normal sinus rhythm Normal ECG When compared with ECG of 05-MAR-2016 17:21, No significant change was found Referred By: Generic ED Physician Electronically Signed By:Jose Jones
[2023-05-11 21:03] LABS: MANUAL DIFF FLAG NO
[2023-05-11 21:05] LABS: Basophils Percent Auto 0.4 % (0-2); Eosinophils Absolute Auto 0.1 X10*3/uL (0.0-0.4); Eosinophils Percent Auto 1.2 % (0-4); Hematocrit 44.2 % (42.0-52.0); Hemoglobin 14.8 g/dl (14.0-18.0); Imm Gran Abs Auto 0.05 X10*3/uL (0.00-0.03); Imm Gran Pct Auto 0.4 % (0.0-0.4); Lymphocytes Absolute Auto 1.8 X10*3/uL (1.2-4.9); Lymphocytes Percent Auto 15.8 % (20-40); Mean Corpuscular HGB Conc 33.5 g/dl (31.0-36.0); Mean Corpuscular Hemoglobin 30.2 pg (27.0-33.0); Mean Corpuscular Volume 90.2 fL (80.0-98.0); Mean Platelet Volume 11.7 fL (9.4-12.4); Monocytes Absolute Auto 0.8 X10*3/uL (0.1-1.2); Monocytes Percent Auto 6.6 % (2-11); Neutrophils Absolute Auto 8.6 x10*3/uL (2.0-8.3); Neutrophils Percent Auto 75.6 % (45-73); Platelet Count 207 X10*3/uL (160-400); Red Cell Distribution Width 13.7 % (11.0-16.0); White Blood Count 11.4 X10*3/uL (4.8-10.8)
[2023-05-11 21:18] LABS: Alanine Aminotransferase 22 U/L (0-40); Albumin Level 4.1 g/dL (3.5-5.0); Alkaline Phosphatase 95 U/L (39-117); Anion Gap 12 (12-20); Aspartate Amino Transferase 21 U/L (5-37); Bilirubin Total 0.2 mg/dL (0.0-1.0); Blood Urea Nitrogen 14 mg/dL (9-16); Calcium 9.5 mg/dL (8.4-10.2); Carbon Dioxide 24 mmol/L (22-29); Chloride 109 mmol/L (96-108); Creatinine Clr Calc Pharmacy 104.5; Estimated Glomerular Filt Rate > 60; Glucose Fasting 104 mg/dL (60-99); Potassium 4.5 mmol/L (3.3-5.1); Sodium 140 mmol/L (135-145); Total Protein 7.4 g/dL (6.5-8.0)
--- NOTE | 2023-05-11 21:53 | ED.FALL ---
HPI - Fall General Chief Complaint: Fall Stated Complaint: FALL, 10/10 L LEG PAIN Time Seen by Provider: 05/11/23 21:07 Source: patient Mode of arrival: EMS Limitations: no limitations History of Present Illness HPI Narrative: Patient comes to the emergency room complaining of left ankle pain after a fall. 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 Patient states that for the last couple of days he has fallen multiple times. Today, patient was trying to get out of the toilet seat, patient slipped because his left ankle slipped and twisted. Patient states that he did hit his head did not lose consciousness. Patient denies being on blood thinners. Patient denies pain anywhere else. Patient states that his neighbor heard him falling and called 911 Related Data Home Medications Medication Instructions Recorded Confirmed calcium carbonate 600 mg calcium 600 mg PO DAILY 12/30/20 04/25/23 (1,500 mg) tablet (Calcium) ferrous sulfate 325 mg (65 mg 325 mg PO DAILY 12/30/20 04/25/23 iron) tablet,delayed release mecobalamin (vitamin B12) 5,000 2,500 mcg PO DAILY 12/30/20 04/25/23 mcg disintegrating tablet omeprazole 20 mg capsule,delayed 20 mg PO DAILY 12/30/20 04/25/23 release pregabalin 150 mg capsule 150 mg PO BID 12/30/20 04/25/23 simvastatin 40 mg tablet 60 mg PO BEDTIME 12/30/20 04/25/23 albuterol sulfate 2.5 mg/3 mL mg inhalation 07/21/22 04/25/23 (0.083 %) solution for nebulization albuterol sulfate 90 mcg/actuation 0 mcg inhalation 07/21/22 04/25/23 aerosol inhaler (Ventolin HFA) fluticasone propionate 110 1 puff inhalation BID 07/21/22 04/25/23 mcg/actuation HFA aerosol inhaler (Flovent HFA) Previous Rx's Medication Instructions Recorded diazepam 5 mg tablet 5 mg PO BEDTIME PRN sleep #1 tab 02/19/22 tizanidine 2 mg tablet 2 mg PO BEDTIME PRN muscle 02/19/22 spasticity #60 tabs Allergies Allergy/AdvReac Type Severity Reaction Status Date / Time tramadol [TRAMADOL] Allergy Intermediate itching Verified 05/11/23 20:27 aspirin [ASPIRIN] AdvReac Intermediate UPSET Verified 05/11/23 20:27 STOMACH Review of Systems Review of Systems: Constitutional : No Weight loss, No Fever, No Chills, No Night Sweats, No Fatigue, No Malaise ENT/Mouth : No Hearing loss, No Ear Pain, No Nasal Congestion, No Sinus Pain, No Hoarseness, No sore throat, No Rhinorrhea, No Swallowing Difficulty Eyes: No Eye Pain, No Swelling, No Redness, No Foreign Body, No Discharge, No Vision Changes Cardiovascular : No Chest Pain, No SOB, No Dyspnea on Exertion, No Orthopnea, No Edema, No Palpitations Respiratory : No Cough, No Sputum, No Wheezing, No Smoke Exposure, No Dyspnea Gastrointestinal : No Nausea, No Vomiting, No Diarrhea, No Constipation, No abdominal Pain, No Hematochezia, No Melena Genitourinary : no irregular bleeding, No Dysuria, No Urinary Frequency, No Hematuria, No Urinary Incontinence, No Urgency, No Flank Pain, No Urinary Flow Changes, No Hesitancy Musculoskeletal : Complaining of left ankle pain Skin : No Skin Lesions, No rash Neuro : No Weakness, No Numbness, No Paresthesias, No Loss of Consciousness, No Dizziness, No Headache Psych : No Anxiety/Panic, No Depression, No SI/HI/AH/VH, No Social Issues, Heme/Lymph: No Bruising, No Bleeding,No Lymphadenopathy Endocrine : No Polyuria, No Polydipsia, No Temperature Intolerance PMFSH Past Medical History Medical History Guillain-Greycliff syndrome Pulmonary embolism Depression Anxiety Osteopenia Lumbar compression fracture BETY on CPAP Anxiety Prediabetes Hyperlipidemia Lumbar spinal stenosis Asthma Surgical History History of hernia repair History of kyphoplasty Social History Social History Alcohol intake: never Patient Tobacco Use Status: Never used Tobacco Advance Directives: No Advance Directives Information Provided: No Current occupational status: disabled Current occupation: left hand dominant Physical Exam Vital Signs: Vital Signs: Last Vital Signs Temp 98.5 F 05/11/23 22:25 Pulse 80 05/11/23 22:25 Resp 16 05/11/23 22:25 BP 131/80 05/11/23 22:25 Pulse Ox 97 05/11/23 22:25 O2 Del Method Room Air 05/11/23 22:25 BMI result Body Mass Index 35.6 Course Course Course Narrative: -patient's x-ray of the foot pending and CT scan of the head and neck. -patient given p.o. oxycodone 5 mg Medications Administered Discontinued Medications Generic Name Dose Route Start Last Admin Trade Name Kirti PRN Reason Stop Dose Admin Oxycodone HCl 5 mg 05/11/23 21:51 05/11/23 22:02 Oxycodone Hcl Immed Release 5 Mg Tablet PO 05/11/23 21:52 5 mg ONCE ONE Administration Medical Decision Making Medical Decision Making [facility] Narrative: -my interpretation of x-ray of the ankle, there is a small lateral malleolus fracture, hardware looks intact -my interpretation of head CT: No intracranial bleed --my interpretation of labs, white blood cell count 11.4, likely reactive leukocytosis, no significant electrolyte abnormalities. -patient can not bear weight, will need crutches. 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 As mentioned above, patient is incapable using crutches due to musculoskeletal deficits secondary to chronic damage from Guillain-Greycliff Differential Diagnosis Differential Diagnoses: The differential diagnosis associated with the presentation includes (Ankle dislocation, fracture, sprain, intracranial bleed, contusion, concussion) Admission/Observation Consideration of admission/observation: Escalation of care including admission/observation considered (Patient will need case management to determine patient's disposition, patient unable to take care of himself at home) Lab Data [facility] Lab Attestation statement: I reviewed the patient's lab results. 05/11/23 20:49 05/11/23 20:49 Labs: Lab Results 05/11/23 Range/Units 20:49 WBC 11.4 H (4.8-10.8) X10*3/uL RBC 4.90 (4.60-5.80) X10*6/uL Hgb 14.8 (14.0-18.0) g/dl Hct 44.2 (42.0-52.0) % MCV 90.2 (80.0-98.0) fL MCH 30.2 (27.0-33.0) pg MCHC 33.5 (31.0-36.0) g/dl RDW 13.7 (11.0-16.0) % Plt Count 207 (160-400) X10*3/uL MPV 11.7 (9.4-12.4) fL Immature Gran % (Auto) 0.4 (0.0-0.4) % Neut % (Auto) 75.6 H (45-73) % Lymph % (Auto) 15.8 L (20-40) % [place] % (Auto) 6.6 (2-11) % Eos % (Auto) 1.2 (0-4) % Baso % (Auto) 0.4 (0-2) % Lymph # (Auto) 1.8 (1.2-4.9) X10*3/uL [place] # (Auto) 0.8 (0.1-1.2) X10*3/uL Eos # (Auto) 0.1 (0.0-0.4) X10*3/uL Baso # (Auto) 0.0 (0.0-0.2) X10*3/uL Abs Immat Gran (auto) 0.05 H (0.00-0.03) X10*3/uL Absolute Neuts (auto) 8.6 H (2.0-8.3) x10*3/uL Absolute Nucleated RBC 0.000 (0.0-0.012) X10*3/uL Nucleated RBC % (auto) 0.0 (0.0-0.2) /100WBC Hold Purple Top SEE NOTE Sodium 140 (135-145) mmol/L Potassium 4.5 (3.3-5.1) mmol/L Chloride 109 H (96-108) mmol/L Carbon Dioxide 24 (22-29) mmol/L Anion Gap 12 (12-20) BUN 14 (9-16) mg/dL Creatinine 0.72 (0.5-1.4) mg/dL Estim Creat Clear Calc 104.5 Estimated GFR > 60 Fasting Glucose 104 H (60-99) mg/dL Calcium 9.5 (8.4-10.2) mg/dL Total Bilirubin 0.2 (0.0-1.0) mg/dL AST 21 (5-37) U/L ALT 22 (0-40) U/L Alkaline Phosphatase 95 (39-117) U/L Total Protein 7.4 (6.5-8.0) g/dL Albumin 4.1 (3.5-5.0) g/dL Independent Interpretation I performed an independent interpretation of an: Plain X-Ray and CT Scan Radiology Impression Discussion of test interpretation with radiology: I have reviewed the radiologist's reading. Radiologist Impression: FINDINGS: Head: There is no acute intracranial hemorrhage or abnormal extra-axial collection. No intracranial mass effect or midline shift. Lateral and third ventricles are proportionate to the subarachnoid spaces. No hydrocephalus. There are scattered nonspecific foci of hypoattenuation within the periventricular white matter. Juarez-white matter differentiation is otherwise preserved and there is no evidence of acute territorial infarct. The calvarium and skull base are intact. Mastoid air cells and middle ear cavities are well aerated. No active paranasal sinus disease. Globes and orbits are grossly symmetric. Cervical spine: There is slight anterolisthesis of C7 on T1 that appears to be related to facet degenerative changes at this level. Alignment is otherwise normal. Vertebral body heights are preserved. No acute fracture. No abnormal prevertebral soft tissue swelling. There is a retropharyngeal course of the carotid arteries. Canal patency is not well assessed on this examination due to inherent limitations of CT without intrathecal contrast. Grossly no spinal canal compromise. Visualized soft tissues of the neck are unremarkable. Lung apices are clear. CT/CT cervical spine wo IV con IMPRESSION: Head: No acute intracranial hemorrhage. There are scattered chronic small vessel ischemic changes within the periventricular white matter. Grossly no evidence of acute territorial infarct. Cervical Spine: There is slight anterolisthesis of C7 on T1 that appears to be related to facet degenerative changes at this level. No acute fracture and no posttraumatic spinal subluxation. Grossly no spinal canal compromise. FINDINGS: Left lower leg ankle: There is a plate and screws hardware appears intact. No fracture malleolus. There is a transverse fracture line seen in the medial malleolus adjacent to the screw. This may extend to the medial tibial plafond. Fracture appears acute. There is diffuse soft tissue swelling at the ankle. Clinical correlation recommended. No lower leg fracture normal knee joint. Left foot: No fracture or dislocation. Normal joint spaces. Normal soft tissues. XR/XR foot LT 2V IMPRESSION: Surgical hardware is seen in the medial malleolus and distal fibula. Transverse acute appearing medial malleolar fracture. Discharge Plan Discharge Clinical Impression: Fracture of medial malleolus Patient Disposition: Still a Patient Prescriptions: No Action pregabalin 150 mg capsule 150 mg PO BID omeprazole 20 mg capsule,delayed release(DR/EC) 20 mg PO DAILY simvastatin 40 mg tablet 60 mg PO BEDTIME calcium carbonate [Calcium 600] 600 mg calcium (1,500 mg) tablet 600 mg PO DAILY ferrous sulfate 325 mg (65 mg iron) tablet,delayed release (DR/EC) 325 mg PO DAILY mecobalamin (vitamin B12) 5,000 mcg tablet,disintegrating 2,500 mcg PO DAILY tizanidine 2 mg tablet 2 mg PO BEDTIME PRN (Reason: muscle spasticity) Qty: 60 6RF Rx Instructions: Take 1-2 tabs at night time as needed diazepam 5 mg tablet 5 mg PO BEDTIME PRN (Reason: sleep) Qty: 1 0RF Rx Instructions: Take 1 hour before procedure fluticasone propionate [Flovent HFA] 110 mcg/actuation HFA aerosol inhaler 1 puff inhalation BID albuterol sulfate 2.5 mg /3 mL (0.083 %) solution for nebulization inhalation albuterol sulfate [Ventolin HFA] 90 mcg/actuation HFA aerosol inhaler 0 mcg inhalation
[2023-05-11] MEDS: oxyCODONE HCl Immed Release 5 MG TABLET PO ×2 (22:02→23:44)
[2023-05-11 22:25] VITALS: BP 131/80; PULSE 80; RESP 16; TEMP 36.9; O2SAT 97
[2023-05-12 01:00] VITALS: PULSE 80; RESP 16; O2SAT 97
[2023-05-12 05:50] VITALS: BP 126/74; PULSE 81; RESP 16; TEMP 36.6; O2SAT 95
[2023-05-12 07:26] VITALS: BP 126/74; PULSE 81; O2SAT 95
--- NOTE | 2023-05-12 07:53 | PC.NURSE ---
Resumed care of patient, he is currently working with PT with breakfast at bedside all needs met at this time, no complaints of pain at this time. Awaiting CM at this time
[2023-05-12 10:30] LABS: COVID-19 Test Negative (Negative); IDNOW Serial# 152EDE1D
--- NOTE | 2023-05-12 10:51 | MHC.CM.ED ---
Addendum entered by Gloria Hawkins 05/12/23 13:11: Samanta can leave for [place] via BLS at 230pm. [facility] with chart. Patient, emmanuelle Loya, Faina RN and Alejandra MONTEJO aware. Addendum entered by Gloria Hawkins 05/12/23 12:13: Facility choices: 1) [facility] 2)[facility] 3)[place]. Referral made via [facility]. Original Note: Received case management consult overnight. Patient came to the ER due to left leg pain. Found to have left ankle fracture. Physical therapy eval completed. Short term rehab recommended. Met with patient, emmanuelle Loya, and computer science professor in regards to discharge planning. Patient lives alone, ambulates with a walker and has a HL7 INTERFACE DEVELOPER through [facility]. PCP verified as Marina Anderson. Patient received 3 Moderna vaccines. HCP completed, signed and witnessed. Original given to patient. Copy placed in chart. List of facilities contracted with patient's insurance provided from [email or web address]. Maikel and Shalini will look over list and provide 2 facility choices to CM. Continue to monitor for d/c needs.
[2023-05-12 11:39] VITALS: BP 141/78; PULSE 90; RESP 20; TEMP 36.6; O2SAT 95
[2023-05-12 15:20] VITALS: BP 141/78; PULSE 90; RESP 20; TEMP 36.6; O2SAT 95
== END 2023-05-12 15:21 | disposition skilled nursing facility (03) ==
PROVIDERS: Physician Assistant; Emergency Provider Emergency Medicine; PCP Internal Medicine
DX: S82.422A Displaced transverse fracture of shaft of left fibula, initial encounter for closed fracture (principal); M97.22XA Periprosthetic fracture around internal prosthetic left ankle joint, initial encounter; W01.0XXA Fall on same level from slipping, tripping and stumbling without subsequent striking against object, initial encounter; Y93.9 Activity, unspecified; Y92.9 Unspecified place or not applicable; Y99.9 Unspecified external cause status; R53.1 Weakness; G61.0 Guillain-Barre syndrome; E78.5 Hyperlipidemia, unspecified; Z11.52 Encounter for screening for COVID-19
CPT/HCPCS: 36415; 70450; 72125; 73590; 73610; 73620; 80053; 85025; 87635; 93005; 97162; 99285

== ENCOUNTER → 2023-05-11 20:25 | Outpatient (BNV) | payer OTHER, SELFPAY | PROVIDERS: Emergency Provider Emergency Medicine; PCP Internal Medicine; Visit Provider Internal Medicine Cardiovascular Disease | DX: R29.6 Repeated falls (principal) | CPT/HCPCS: 93010 ==

== ENCOUNTER 2023-05-20 10:31 | Outpatient (AMB) | payer OTHER, SELFPAY ==
--- NOTE | 2023-05-20 10:55 | A.OFFVIS_ITS ---
Intake Vital Signs 05/20/23 10:57 Height 5 ft 7 in Weight 227 lb BMI 35.5 Intake Visit Reasons: Newprob-FC of medial malleolus, left-DOI 05/11/23 Intake Note: Franklin noel 72 year old male presents today for an ER follow up of left ankle, DOI 05/11/23. Patient reports while getting up the toilet he slipped causing him twist his ankle and fall. He has been frequently falling recently. Patient states in 1989 he was diagnosed with Guillain-Hanson and he has chronic weakness in lower extremities Manager Proposal Name: Lul [id number] Information Interpreted: non-clinical & clinical Accompanied by: Nephew or Niece Allergies tramadol [TRAMADOL] Allergy (Intermediate, Verified 05/20/23 10:56) itching aspirin [ASPIRIN] Adverse Reaction (Intermediate, Verified 05/20/23 10:56) UPSET STOMACH HPI Newprob-FC of medial malleolus, left-DOI 05/11/23 HPI Details 72-year-old male who [facility] ER follow-up of left ankle injury while getting up the toilet when he slipped causing him to twist his ankle and sustained a fall, 05/11/23. He currently states he has pain in his left ankle. He reports he has been frequently falling recently. He was diagnosed with Guillan-Hanson syndrome in 1989 and has chronic weakness in his lower extremities. [facility] Medical History Guillain-Hanson syndrome Pulmonary embolism Depression Anxiety Osteopenia Lumbar compression fracture BETY on CPAP Anxiety Prediabetes Hyperlipidemia Lumbar spinal stenosis Asthma Surgical History History of hernia repair History of kyphoplasty Social History Alcohol intake: never Patient Tobacco Use Status: Never used Tobacco Current occupational status: disabled Current occupation: left hand dominant Review of Systems Const All systems reviewed & are unremarkable except as noted in HPI and below Physical Exam Vital Signs: BMI result Body Mass Index 35.5 Extrem Other: Left ankle: Normal to inspection with diffuse swelling over the medial and lateral malleolus with tenderness along the soft tissues. No discomfort along the posterior aspect of the ankle, no deformity along the Achilles tendon, negative Ramirez?s. No pain along the syndesmosis or anterior tibia. No laxity, NVI. Office Procedures Casting/Splints 79900-[id number] Leg Cast Application Procedure code (CPT) selection complete Fracture Care Fracture Billing Code: Fracture Billing Code Results Reviewed Results Reviewed: xrays of the left ankle IMPRESSION: Surgical hardware is seen in the medial malleolus and distal fibula. Transverse acute appearing medial malleolar fracture. Assessment & Plan Assessment & Plan (1) Closed left ankle fracture: Code(s): S82.892A - Other fracture of left lower leg, initial encounter for closed fracture Plan Images reviewed with Dr Nava. The hardware is intact. No concerned for l oosening but there does appear to be an acute fracture on old , healed fracture. He was placed in a short leg cast which he will non weight bearing for 6 weeks, at which point he will return with cast off and new x-rays, sooner if needed. Patient Instructions: Scribed for Jeffrey Bob PA-C, by Paddy Suarez medical associate, on 05/20/2023 at 10:30 AM EST. I, Jeffrey Bob PA-C, have personally reviewed and agree with the information entered by the scribe. Coding Level of Care Code New Pt Level 3 (12944) Diagnoses Closed left ankle fracture S82.892A CPT Codes Casting - CPT: 80116-Uisdh Leg Cast Application ([id number]) Fracture Care - Fracture Billing Code: Fracture Billing Code ([id number])
[2023-05-20 10:57] VITALS: BMI 35.5
== END 2023-05-20 12:24 | disposition home or self-care (01) ==
PROVIDERS: PCP Internal Medicine; Visit Provider Physician Assistant
DX: S82.892A Other fracture of left lower leg, initial encounter for closed fracture (principal); W01.0XXA Fall on same level from slipping, tripping and stumbling without subsequent striking against object, initial encounter; R29.6 Repeated falls
CPT/HCPCS: 27786; 99214

== ENCOUNTER → 2023-05-20 10:31 | Outpatient (BNVA) | payer OTHER, SELFPAY | PROVIDERS: PCP Internal Medicine; Visit Provider Physician Assistant | DX: S82.52XA Displaced fracture of medial malleolus of left tibia, initial encounter for closed fracture (principal) | CPT/HCPCS: 27786; 99212 ==

== ENCOUNTER 2023-06-24 07:37 | Outpatient (REF) | payer OTHER, SELFPAY ==
--- NOTE | ~2023-06-24 | XR_ITS ---
EXAMINATION: XR ANKLE, LEFT CLINICAL INFORMATION: Pain in left ankle and joints of foot. COMPARISON: 05/11/2023. TECHNIQUE: AP, lateral, and mortise views of the left ankle. FINDINGS: Redemonstration of surgical screw transfixing previously identified transverse fracture of the medial malleolus. The fracture line appears more conspicuous and may extend to the medial tibial plafond as previously noted. Redemonstration of a plate and screws along the distal fibula. Hardware appears intact. Possible linear lucencies versus areas of demineralization in the distal fibula. There is focal cortical disruption along the medial aspect of the distal fibula between the levels of the 2 most superior transverse screws, worrisome for nondisplaced fracture. Redemonstration of asymmetric medial widening of the ankle mortise. XR/XR ankle LT min 3V IMPRESSION: Redemonstration of surgical screw transfixing previously identified transverse fracture of the medial malleolus. The fracture line appears more conspicuous and may extend to the medial tibial plafond as previously noted. Redemonstration of a plate and screws along the distal fibula. Hardware appears intact. Possible linear lucencies versus areas of demineralization in the distal fibula. There is focal cortical disruption along the medial aspect of the distal fibula between the levels of the 2 most superior transverse screws, worrisome for nondisplaced fracture. Redemonstration of asymmetric medial widening of the ankle mortise. This study was presented today, 06/29/2023, for interpretation. [facility] staff will provide results to referring provider at this time.
== END 2023-06-24 07:38 | disposition home or self-care (01) ==
LOC: HO.HOSX 07:37
PROVIDERS: Visit Provider Physician Assistant
DX: S82.892D Other fracture of left lower leg, subsequent encounter for closed fracture with routine healing (principal)
CPT/HCPCS: 73610; 99212

== ENCOUNTER 2023-06-24 09:34 | Outpatient (AMB) | payer OTHER, SELFPAY ==
[2023-06-24 10:03] VITALS: BMI 35.5
--- NOTE | 2023-06-24 10:03 | MHC.OFFVIS ---
Vital Signs 06/24/23 10:03 Height 5 ft 7 in Weight 227 lb BMI 35.5 Intake Visit Reasons: ov-FC of medial malleolus, left-DOI 05/11/23 Intake Note: Franklin a 72 year old male presents today for an ER follow up of left ankle, DOI 05/11/23. Cast off and xrays updated. Patient reports he was in the bathroom and he slipped and twisted his ankle. Patient reports he is not having a lot of pain, however he cannot move his toes. Allergies tramadol [TRAMADOL] Allergy (Intermediate, Verified 06/24/23 10:12) itching aspirin [ASPIRIN] Adverse Reaction (Intermediate, Verified 06/24/23 10:12) UPSET STOMACH HPI HPI ov-FC of medial malleolus, left-DOI 05/11/23: Details: 72 year old male returns to the office today f/u left ankle fx , DOI 05/11/23. Cast off and xrays updated. He is doing well today, no concerns. [facility] Medical History (Updated 06/29/23 @ 16:02 by Jeffrey Bob PA-C) Neuropathy Quadriparesis Guillain-Harriman syndrome Pulmonary embolism Depression Anxiety Osteopenia Lumbar compression fracture BETY on CPAP Anxiety Prediabetes Hyperlipidemia Lumbar spinal stenosis Asthma Surgical History History of hernia repair History of kyphoplasty Social History Alcohol intake: never Patient Tobacco Use Status: Never used Tobacco Current occupational status: disabled Current occupation: left hand dominant Review of Systems Const All systems reviewed & are unremarkable except as noted in HPI and below Physical Exam Vital Signs: BMI result Body Mass Index 35.5 Extrem Other: Left ankle: Normal to inspection , no swelling or tenderness noted on exam. No discomfort along the posterior aspect of the ankle, no deformity along the Achilles tendon, negative Ramirez?s. No pain along the syndesmosis or anterior tibia. No laxity, NVI. Results Reviewed Results Reviewed: Xrays were obtained in the office today and personally reviewed by me of the left ankle show intact hardware with stable fracture Assessment & Plan Assessment & Plan (1) Closed left ankle fracture: Code(s): S82.892A - Other fracture of left lower leg, initial encounter for closed fracture Category: Medical Qualifiers: Encounter type: subsequent encounter Fracture healing: with routine healing Qualified Code(s): S82.892D - Other fracture of left lower leg, subsequent encounter for closed fracture with routine healing Plan: He was transitioned to a boot, he can begin wbat. He will work with PT for ROM, gait training and strength. I would like to see him back in 6 weeks with xrays, sooner if needed. Orders: Orders XR ankle LT min 3V 06/24/23 M25.572 - Pain in left ankle and joints of left foot Coding Level of Care Code Global (56512) Diagnoses Closed fracture of left ankle with routine healing, subsequent encounter S82.892D Encounter type: subsequent encounter Fracture healing: with routine healing
== END 2023-06-24 11:01 | disposition home or self-care (01) ==
PROVIDERS: PCP Internal Medicine; Visit Provider Physician Assistant
DX: S82.892D Other fracture of left lower leg, subsequent encounter for closed fracture with routine healing (principal)
CPT/HCPCS: 99024

== ENCOUNTER 2023-08-05 07:08 | Outpatient (REF) | payer OTHER, SELFPAY ==
--- NOTE | ~2023-08-05 | XR_ITS ---
EXAMINATION: XR ANKLE, LEFT CLINICAL INFORMATION: Pain in left ankle and joints of left foot COMPARISON: Left ankle 06/24/2023 TECHNIQUE: AP, lateral, and mortise views of the left ankle. FINDINGS: Again seen is a single surgical screw transfixing previously identified transverse fracture the medial malleolus. Hardware appears intact. No change in position or alignment of the fracture fragments. The fracture line is slightly more conspicuous. Mild bony callus is seen. Again seen is plate and screws along the distal fibula. Hardware appears intact. Possible linear lucencies versus areas of demineralization of the distal fibula. Interval increase in soft tissue swelling. Mild cortical irregularity of the anterior aspect of the tibia appreciated on the lateral view not previously appreciated. XR/XR ankle LT min 3V IMPRESSION: 1. Healing fracture of the medial malleolus and distal fibula. 2. Mild cortical irregularity of the anterior aspect of the tibia appreciated on the lateral view. 3. Possible linear lucencies versus areas of demineralization of the distal fibula.
== END 2023-08-05 07:09 | disposition home or self-care (01) ==
LOC: HO.HOSX 07:08
PROVIDERS: Visit Provider Physician Assistant
DX: M25.572 Pain in left ankle and joints of left foot (principal); S82.892D Other fracture of left lower leg, subsequent encounter for closed fracture with routine healing; X58.XXXD Exposure to other specified factors, subsequent encounter
CPT/HCPCS: 73610; 99212

== ENCOUNTER 2023-08-05 10:47 | Outpatient (AMB) | payer OTHER, SELFPAY ==
--- NOTE | 2023-08-05 11:15 | A.OFFVIS_ITS ---
Vital Signs 08/05/23 11:16 Height 5 ft 7 in Weight 227 lb BMI 35.5 Intake Visit Reasons: OV-f/u left ankle fx w xrays Intake Note: Franklin is a 73 year old male patient who presents today for a follow up of his left ankle fracture. He was transitioned to a boot, he can begin wbat. He will work with PT for ROM, gait training and strength. Burning Supervisor Required: Yes Allergies tramadol [TRAMADOL] Allergy (Intermediate, Verified 08/05/23 11:17) itching aspirin [ASPIRIN] Adverse Reaction (Intermediate, Verified 08/05/23 11:17) UPSET STOMACH HPI HPI OV-f/u left ankle fx w xrays: Details: 73-year-old male who returns to the office today for a follow-up of left ankle fracture. He states he has no pain swelling, pain or discomfort and is doing well overall. He continues to wear the boot as instructed. He has no concerns today. [facility] Medical History (Updated 06/29/23 @ 16:02 by Jeffrey Bob PA-C) Neuropathy Quadriparesis Guillain-[place] syndrome Pulmonary embolism Depression Anxiety Osteopenia Lumbar compression fracture BETY on CPAP Anxiety Prediabetes Hyperlipidemia Lumbar spinal stenosis Asthma Surgical History History of hernia repair History of kyphoplasty Social History Alcohol intake: never Patient Tobacco Use Status: Never used Tobacco Current occupational status: disabled Current occupation: left hand dominant Review of Systems Const All systems reviewed & are unremarkable except as noted in HPI and below Physical Exam Vital Signs: BMI result Body Mass Index 35.5 Extrem Other: Left ankle: Normal to inspection , no swelling or tenderness noted on exam. No discomfort along the posterior aspect of the ankle, no deformity along the Achilles tendon, negative Ramirez?s. No pain along the syndesmosis or anterior tibia. No laxity, NVI. Results Reviewed Results Reviewed: Xrays were obtained in the office today and personally reviewed by me of the left ankle show intact hardware with stable fracture healing Assessment & Plan Assessment & Plan (1) Closed left ankle fracture: Code(s): S82.892A - Other fracture of left lower leg, initial encounter for closed fracture Category: Medical Qualifiers: Encounter type: subsequent encounter Fracture healing: with routine healing Qualified Code(s): S82.892D - Other fracture of left lower leg, subsequent encounter for closed fracture with routine healing Plan He will discontinue the boot and transition to a lace up ankle brace. He will work on physical therapy for ROM and gait training/strengthening. He will increase activities as symptoms allow and follow-up as needed. Orders: Orders XR ankle LT min 3V 08/05/23 M25.572 - Pain in left ankle and joints of left foot Patient Instructions: Scribed for Jeffrey Bob PA-C, by Paddy Suarez medical donation professional, on 08/05/2023 at 10:45 AM EST.? I, Jeffrey Bob PA-C, have personally reviewed and agree with the information entered by the scribe. Coding Level of Care Code Global (60916) Diagnoses Closed fracture of left ankle with routine healing, subsequent encounter S82.892D Encounter type: subsequent encounter Fracture healing: with routine healing
[2023-08-05 11:16] VITALS: BMI 35.5
== END 2023-08-05 15:40 | disposition home or self-care (01) ==
LOC: HO.HOS 10:47
PROVIDERS: PCP Internal Medicine; Visit Provider Physician Assistant
DX: S82.892D Other fracture of left lower leg, subsequent encounter for closed fracture with routine healing (principal)
CPT/HCPCS: 99024

== ENCOUNTER 2023-08-24 12:00 | Outpatient (AMB) | payer OTHER, SELFPAY ==
--- NOTE | 2023-08-24 12:26 | MHC.OFFVIS ---
Vital Signs 08/24/23 12:27 Height 5 ft 7 in BP 120/70 Blood Pressure Location Lt brachial Position Sitting Respiration 16 Pulse 71 Pulse Source Pulse Oximeter Pulse Oximetry (%) 95 Oxygen Delivery Method Room Air Intake Visit Reasons: 3 Month F/U - LVM w/add Intake Note: Pt presents for 4 month follow up for neuropathy. 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 He denies any worsening since last visit he had a fall 3 mths ago - left ankle fracture In 1995 he had Guillian Eustace syndrome - admitted to hospital with quadriparesis/plegia. He was [facility] and was at [facility].His motor functions improved and started walking with cane But he had worsened progressively and now can ambulate only with a walker.. About 1 year ago he had a fall, fractured his right arm and was not exercising. Since then he has noticed increase in weakness, tingling ,cramping.It is usually when he is standing. He denies neck pain but has back pain . He denies urinary incontinence or bowel movements. [facility] Medical History Neuropathy Quadriparesis Guillain-Eustace syndrome Pulmonary embolism Depression Anxiety Osteopenia Lumbar compression fracture BETY on CPAP Anxiety Prediabetes Hyperlipidemia Lumbar spinal stenosis Asthma Surgical History History of hernia repair History of kyphoplasty Social History Alcohol intake: never Patient Tobacco Use Status: Never used Tobacco Current occupational status: disabled Current occupation: left hand dominant Physical Exam Vital Signs: Last Vital Signs Pulse 71 08/24/23 12:27 Resp 16 08/24/23 12:27 BP 120/70 08/24/23 12:27 Pulse Ox 95 08/24/23 12:27 Oxygen Delivery Method Room Air 08/24/23 12:27 Const General: cooperative, healthy appearing, comfortable and no acute distress Nutritional Appearance: average body habitus Orientation/consciousness: patient oriented x3 Neuro Other: 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 Forearm 4/5 SHoulder - 4/5 Tone normal Thenar and hypothenar atrophy LE Proximal 2/5 distal 1/5 General: patient oriented x3 Deep tendon reflexes (DTR's): Right triceps reflex intensity grade: 2+, Left triceps reflex intensity grade: 2+, Rt Biceps (C5, C6): 2+, Left biceps reflex intensity grade: 2+, Right brachioradialis reflex intensity grade: 2+, Left brachioradialis reflex intensity grade: 2+, Right patellar reflex intensity grade: 1+, Left patellar reflex intensity grade: 1+, Right ankle reflex intensity grade: 0 and Left ankle reflex intensity grade: 0 Coordination: [id number] test normal Assessment & Plan Assessment & Plan (1) Quadriparesis: Code(s): G82.50 - Quadriplegia, unspecified Category: Medical (2) 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
[2023-08-24 12:27] VITALS: BP 120/70; PULSE 71; RESP 16; O2SAT 95
== END 2023-08-24 12:55 | disposition home or self-care (01) ==
PROVIDERS: Visit Provider Psychiatry & Neurology Neurology
DX: G82.50 Quadriplegia, unspecified (principal); G62.9 Polyneuropathy, unspecified
CPT/HCPCS: 99213

== ENCOUNTER → 2023-08-24 12:00 | Outpatient (BNVA) | payer OTHER, SELFPAY | PROVIDERS: Visit Provider Psychiatry & Neurology Neurology | DX: G62.9 Polyneuropathy, unspecified (principal); G82.50 Quadriplegia, unspecified | CPT/HCPCS: 99212 ==

== ENCOUNTER 2024-11-21 09:30 | Outpatient (AMB) | payer OTHER, SELFPAY ==
--- NOTE | 2024-11-21 09:39 | MHC.OFFVIS ---
Vital Signs 11/21/24 09:43 Height 5 ft 7 in BP 128/82 Blood Pressure Location Rt brachial Position Sitting Pulse 74 Pulse Source Pulse Oximeter Pulse Oximetry (%) 96 Oxygen Delivery Method Room Air Intake Visit Reasons: Follow up Intake Note: Follow up Quadriparesis and Neruropathy Adult Daycare Coordinator Required: Yes Adult Daycare Coordinator Services: Adult Daycare Coordinator Present Adult Daycare Coordinator Name: iPad when MD comes in Accompanied by: MATERIALS CLERK Allergies tramadol (TRAMADOL) Allergy (Intermediate, Verified 11/21/24 09:40) itching aspirin (ASPIRIN) Adverse Reaction (Intermediate, Verified 11/21/24 09:40) UPSET STOMACH Medication List - Last Reconciled 11/21/24 by Aura Desouza MD albuterol sulfate 90 mcg/actuation (Ventolin HFA) 0 mcg inhalation albuterol sulfate mg inhalation calcium carbonate (Calcium 600) 600 mg PO DAILY diazepam 5 mg PO BEDTIME PRN ferrous sulfate 325 mg PO DAILY fluoxetine mg PO fluticasone propionate 110 mcg/actuation (Flovent HFA) 1 puff inhalation BID mecobalamin (vitamin B12) 2,500 mcg PO DAILY omeprazole 20 mg PO DAILY pregabalin 150 mg PO BID simvastatin 60 mg PO BEDTIME HPI Comments Details: 74y/o male comes for f/u numbness, tingling and cramping in his eliana feet and lower legs. His nephew is concerned about his sleep - snores loudly , had trouble falling asleep and staying asleep. He used to be on CPAP= but does not have it now. He also reports memory issues He denies any worsening of his quadriparesis and numbness. He is doing the same . No falls History from last visit- 08/2023 -In 1995 he had Guillian [place] syndrome - admitted to hospital with quadriparesis/plegia. He was [facility] and was at [facility].His motor functions improved and started walking with cane But he had worsened progressively and now can ambulate only with a walker.. About 1 year ago he had a fall, fractured his right arm and was not exercising. Since then he has noticed increase in weakness, tingling ,cramping.It is usually when he is standing. He denies neck pain but has back pain . He denies urinary incontinence or bowel incontinence [facility] Medical History (Updated 11/21/24 @ 10:18 by Aura Desouza MD) Hypersomnia Snoring Obstructive sleep apnea Neuropathy Quadriparesis Guillain-[place] syndrome Pulmonary embolism Depression Anxiety Osteopenia Lumbar compression fracture BETY on CPAP Anxiety Prediabetes Hyperlipidemia Lumbar spinal stenosis Asthma Surgical History History of hernia repair History of kyphoplasty Social History Alcohol intake: never Patient Tobacco Use Status: Never used Tobacco Current occupational status: disabled Current occupation: left hand dominant Physical Exam Vital Signs: Last Vital Signs Pulse 74 11/21/24 09:43 BP 128/82 11/21/24 09:43 Pulse Ox 96 11/21/24 09:43 Oxygen Delivery Method Room Air 11/21/24 09:43 Const General: cooperative, healthy appearing, comfortable and no acute distress Nutritional Appearance: average body habitus Orientation/consciousness: patient oriented x3 Neuro Other: 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 Forearm 4/5 SHoulder - 4/5 Tone normal Thenar and hypothenar atrophy LE Proximal 2/5 distal 1/5 General: patient oriented x3 Deep tendon reflexes (DTR's): Right triceps reflex intensity grade: 2+, Left triceps reflex intensity grade: 2+, Rt Biceps (C5, C6): 2+, Left biceps reflex intensity grade: 2+, Right brachioradialis reflex intensity grade: 2+, Left brachioradialis reflex intensity grade: 2+, Right patellar reflex intensity grade: 1+, Left patellar reflex intensity grade: 1+, Right ankle reflex intensity grade: 0 and Left ankle reflex intensity grade: 0 Coordination: [id number] test normal Assessment & Plan Assessment & Plan (1) Quadriparesis: Code(s): G82.50 - Quadriplegia, unspecified Category: Medical (2) 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 will refer for home PT and OT Supportive care. Home sleep test to r/o sleep apnea Orders: Orders RT home sleep study Today G47.10 - Hypersomnia, unspecified, G47.33 - Obstructive sleep apnea (adult) (pediatric), R06.83 - Snoring Referrals [facility] Referral G62.9 - Polyneuropathy, unspecified, G82.50 - Quadriplegia, unspecified Coding Level of Care Code Est Pt Level 4 (14849) Complex EM visit Add On G2211 Diagnoses Quadriparesis G82.50 Neuropathy G62.9 Obstructive sleep apnea G47.33 Snoring R06.83 Hypersomnia G47.10
[2024-11-21 09:43] VITALS: BP 128/82; PULSE 74; O2SAT 96
== END 2024-11-21 10:30 | disposition home or self-care (01) ==
LOC: HO.HSMS 09:30
PROVIDERS: Visit Provider Psychiatry & Neurology Neurology
DX: G82.50 Quadriplegia, unspecified (principal); G62.9 Polyneuropathy, unspecified; G47.33 Obstructive sleep apnea (adult) (pediatric); R06.83 Snoring; G47.10 Hypersomnia, unspecified
CPT/HCPCS: 99214; G2211

== ENCOUNTER → 2024-11-21 09:30 | Outpatient (BNVA) | payer OTHER, SELFPAY | PROVIDERS: Visit Provider Psychiatry & Neurology Neurology | DX: G82.50 Quadriplegia, unspecified (principal); G62.9 Polyneuropathy, unspecified; G47.33 Obstructive sleep apnea (adult) (pediatric); R06.83 Snoring; G47.10 Hypersomnia, unspecified | CPT/HCPCS: 99212 ==